=== PATIENT | female | born 1975 | race Caucasian/White ===

== ENCOUNTER → 2017-05-05 | Outpatient (CLI) | payer OTHER ==
--- NOTE | 2017-05-05 09:24 | WOMENS IMAGING REPORT ---
EXAM DESCRIPTION: U/S ABDOMEN LIMITED COMPLETED DATE/TIME: 05/05/2017 8:15 am REASON FOR STUDY: ABNORMAL FINDINGS ON DIAGNOSTIC IMAGING R93.2 ABNORMAL FINDINGS ON DX IMAGING OF LIVER AND BILIARY T R94.5 ABNORMAL RESULTS OF LIVER FUNCTION STUDIES COMPARISON: CT abdomen pelvis with contrast 05/28/2011 Abdominal ultrasound 05/28/2011 TECHNIQUE: Dynamic and static grayscale images acquired of the abdomen and recorded on PACS. Additio nal selected color Doppler and spectral images recorded. LIMITATIONS: None. FINDINGS: PANCREAS: No masses. Visualized pancreatic duct normal caliber. LIVER: No masses. Echotexture normal. LIVER VASCULATURE: Normal directional flow of the main portal vein and hepatic veins. GALLBLADDER: Surgically absent ULTRASOUND-DETECTED HERR'S SIGN: Negative. INTRAHEPATIC DUCTS AND COMMON DUCT: CBD and intrahepatic ducts normal caliber. No filling defects. 3 mm diameter common duct at the deepthi hepatis. Distal most common duct not well seen due to duodenum gas. INFERIOR VENA CAVA: Normal flow. AORTA: No aneurysm. RIGHT KIDNEY: Normal size. Normal echogenicity. No solid or suspicious masses. No hydronephrosis. No calcifications. PERITONEAL AND RIGHT PLEURAL SPACE: No ascites or effusions. OTHER: No other significant findings. IMPRESSION: Post cholecystectomy. No intra or extrahepatic biliary ductal dilatation on today's ultrasound. TECHNICAL DOCUMENTATION: JOB ID: [id number] All Rights Reserved
== END ==
LOC: RAD 07:38
PROVIDERS: ATTEND Internal Medicine Gastroenterology
DX: R93.2 Abnormal findings on diagnostic imaging of liver and biliary tract (principal); R94.5 Abnormal results of liver function studies
CPT/HCPCS: 76705

== ENCOUNTER 2018-02-18 10:15 | Inpatient (IN) | payer OTHER ==
[~2018-02-18 10:15] MED LIST: FUROSEMIDE INJ/PF 20 MG/2 ML SDV IV PRN
[2018-02-18 11:13] LABS: HEMATOCRIT 18.9 % (36.0-47.0); MEAN CORPUSCULAR HGB CONC 30.8 g/dL (32.0-36.0); MEAN CORPUSCULAR VOLUME 75 fl (80-97); PLATELET COUNT 310 10^3/uL (150-450); RED BLOOD COUNT 2.53 10^6/uL (3.72-5.28)
[2018-02-18] MEDS ORDERED: NORMAL SALINE 250 ML IV PRN (11:21)
[2018-02-18] MEDS ORDERED: DEXTROSE 50%-WATER 25 GM/50 ML DISP.SYRIN IV PRN ×2 (12:39)
[2018-02-18] MEDS ORDERED: DEXTROSE 40% GEL 15 GM TUBE PO PRN ×2 (12:39)
[2018-02-18] MEDS ORDERED: GLUCAGON,HUMAN RECOMB 1 MG INJ SUBCUT PRN (12:39)
[2018-02-18] MEDS ORDERED: NORMAL SALINE 1000 ML 1,000 ML IV PRN (12:41)
[2018-02-18 12:58] LABS: ABSOLUTE RETICS # 0.076 10^6/uL (0.028-0.122); RETICULOCYTE COUNT (AUTO) 3.24 % (0.66-2.85)
[2018-02-18 13:17] LABS: ALANINE AMINOTRANSFERASE 30 U/L (9-52); ALBUMIN 3.4 g/dL (3.5-5.0); ALKALINE PHOSPHATASE 77 U/L (38-126); ANION GAP 9 (5-19); ASPARTATE AMINO TRANSFERASE 25 U/L (14-36); BILIRUBIN,DIRECT 0.2 mg/dL (0.0-0.4); BILIRUBIN,TOTAL 0.2 mg/dL (0.2-1.3); BLOOD UREA NITROGEN 13 mg/dL (7-20); CALCIUM 8.5 mg/dL (8.4-10.2); CARBON DIOXIDE 27 mmol/L (22-30); CHLORIDE 105 mmol/L (98-107); GLUCOSE 92 mg/dL (75-110); SODIUM 140.7 mmol/L (137-145); TOTAL PROTEIN 5.7 g/dL (6.3-8.2)
[2018-02-18] MEDS ORDERED: DIPHENHYDRAMINE HCL 25 MG CAPSULE PO ONE (13:30)
[2018-02-18 13:53] LABS: FERRITIN 3.14 ng/mL (6.2-137.0)
[2018-02-18 14:26] LABS: IRON(TIBC) < 10.1 ug/dL (37-170)
--- NOTE | 2018-02-18 17:21 | PDOC H&P ---
History of Present Illness Admission Date/PCP: 02/18/18 10:15 LUCILA TATUM MD Patient complains of: Nausea, Tarry diarrhea History of Present Illness: KANG CHEN is a 42 year old female referred to my service for admission by Dr Duran, glass enamel mixer/oncologist, who has been caring for her anemia. Patient reported that her hemoglobin was 10.4 on 01/18/2018 and dropped to 5.8 today at [facility]. She reported nausea, early satiety, intermittent diarrhea and formed stool that she described as tarry in character. No definite abdominal pain or overt vomiting. There is associated dizziness. No loss of consciousness, headache, fever or chills. In view of her symptoms and low hemoglobin she was advised hospitalization for further evaluation and management. Past Medical History Cardiac Medical History: Reports: Hypertension Neurological Medical History: Reports: Migraine GI Medical History: Reports: Peptic Ulcer Disease, Other - Gastric bypass Psychiatric Medical History: Reports: Depression Hematology: Reports: Anemia Past Surgical History Past Surgical History: Reports: Gastric Bypass Surgery Social History Information Source: Patient, Dr. Office, Outside Facility Records Smoking Status: Never Smoker Frequency of Alcohol Use: None Hx Recreational Drug Use: No - Advance Directive Resuscitation Status: Full Code Family History Parental Family History Reviewed: Yes Children Family History Reviewed: Yes Sibling(s) Family History Reviewed.: Yes Medication/Allergy Home Medications: No Home Medications 11/26/16 Allergies/Adverse Reactions: No Known Allergies Allergy (Unverified 04/01/11 10:45) Review of Systems Constitutional: ABSENT: chills, fever(s), headache(s), weight gain, weight loss Eyes: ABSENT: visual disturbances Ears: ABSENT: hearing changes Nose, Mouth, and Throat: ABSENT: as per HPI, headache(s), mouth pain, sore throat, vertigo, other Cardiovascular: ABSENT: chest pain, dyspnea on exertion, edema, orthropnea, palpitations Respiratory: ABSENT: cough, hemoptysis Gastrointestinal: PRESENT: diarrhea, hematochezia - tarry stool, nausea, vomiting Genitourinary: ABSENT: dysuria, hematuria Musculoskeletal: ABSENT: joint swelling Integumentary: ABSENT: rash, wounds Neurological: ABSENT: abnormal gait, abnormal speech, confusion, dizziness, focal weakness, syncope Psychiatric: PRESENT: anxiety, depression Endocrine: ABSENT: cold intolerance, heat intolerance, menstrual abnormalities, polydipsia, polyuria Hematologic/Lymphatic: ABSENT: easy bleeding, easy bruising, lymphadenopathy Allergic/Immunologic: ABSENT: seasonal rhinorrhea Physical Exam Vital Signs: Temp Pulse Resp BP Pulse Ox 98.5 F 105 H 18 148/89 H 99 02/18/18 10:52 02/18/18 10:52 02/18/18 10:52 02/18/18 10:52 02/18/18 10:52 Intake & Output 02/17/18 02/18/18 02/19/18 06:59 06:59 06:59 Weight 127.91 kg General appearance: PRESENT: morbidly obese Head exam: PRESENT: atraumatic, normocephalic Eye exam: PRESENT: conjunctiva pale, EOMI, PERRLA. ABSENT: scleral icterus Ear exam: PRESENT: normal external ear exam Mouth exam: PRESENT: moist, tongue midline Throat exam: ABSENT: post pharyngeal erythema, tonsillar erythema, tonsillar exudate, tonsillogmegaly, other Neck exam: PRESENT: full ROM. ABSENT: carotid bruit, JVD, lymphadenopathy, thyromegaly Respiratory exam: PRESENT: clear to auscultation niurka Cardiovascular exam: PRESENT: RRR. ABSENT: diastolic murmur, rubs, systolic murmur Pulses: PRESENT: normal dorsalis pedis pul, +2 pedal pulses bilateral Vascular exam: PRESENT: normal capillary refill, pallor GI/Abdominal exam: PRESENT: normal bowel sounds, soft. ABSENT: distended, guarding, mass, organolmegaly, rebound, tenderness Rectal exam: PRESENT: deferred Extremities exam: ABSENT: pedal edema Musculoskeletal exam: PRESENT: normal inspection Neurological exam: PRESENT: alert, awake, oriented to person, oriented to place , oriented to time, oriented to situation, CN II-XII grossly intact. ABSENT: motor sensory deficit Psychiatric exam: PRESENT: appropriate affect, normal mood. ABSENT: homicidal ideation, suicidal ideation Results Laboratory Results: I reviewed her lab results on '[employer] and form significant part of my medical decision making. 02/18/18 10:43 02/18/18 02/18/18 10:43 10:43 WBC 4.0 RBC 2.53 L Hgb 5.8 L Hct 18.9 L MCV 75 L MCH 23.0 L MCHC 30.8 L RDW 18.0 H Plt Count 310 Blood Type A POSITIVE Antibody Screen NEGATIVE Assessment & Plan - Diagnosis (1) Severe anemia Is this a current diagnosis for this admission?: Yes Plan: See admitting attending physician orders. (2) Iron deficiency anemia Qualifiers: Iron deficiency anemia type: chronic blood loss Qualified Code(s): D50.0 - Iron deficiency anemia secondary to blood loss (chronic) Is this a current diagnosis for this admission?: Yes Plan: See admitting attending physician orders. (3) Personal history of peptic ulcer disease Is this a current diagnosis for this admission?: Yes Plan: See admitting attending physician orders. (4) History of gastric bypass Is this a current diagnosis for this admission?: Yes Plan: See admitting attending physician orders. (5) Hypertension Qualifiers: Hypertension type: essential hypertension Qualified Code(s): I10 - Essential (primary) hypertension Is this a current diagnosis for this admission?: Yes Plan: See admitting attending physician orders. (6) Mixed anxiety and depressive disorder Is this a current diagnosis for this admission?: Yes Plan: See admitting attending physician orders. (7) Migraine headache Qualifiers: Migraine type: unspecified Intractability: not intractable Is this a current diagnosis for this admission?: Yes Plan: See admitting attending physician orders. (8) Morbid obesity with body mass index (BMI) of 45.0 to 49.9 in adult Is this a current diagnosis for this admission?: Yes Plan: See admitting attending physician orders. - Time Time Spent: 50 to 70 Minutes Medications reviewed and adjusted accordingly: Yes Anticipated discharge: Home Within: Other - Inpatient Certification Based on my medical assessment, after consideration of the patient's comorbidities, presenting symptoms, or acuity I expect that the services needed warrant INPATIENT care.: Yes I certify that my determination is in accordance with my understanding of Medicare's requirements for reasonable and necessary INPATIENT services [42 CFR 412.3e].: Yes Medical Necessity: Need Close Monitoring Due to Risk of Patient Decompensation, Need For IV Fluids, Risk of Complication if Not Cared For in Hospital Post Hospital Care: D/C Special Needs Caregiver Documentation - Plan Summary Plan Summary: See admitting attending physician orders.
[2018-02-18] MEDS: LANSOPRAZOLE 30 MG TAB.RAP.DR PO SCH (17:37)
[2018-02-18] MEDS ORDERED: ONDANSETRON HCL INJ/PF 4 MG/2 ML SDV ONE (19:45)
[2018-02-18] MEDS ORDERED: DIPHENHYDRAMINE HCL 50 MG/ML VIAL ONE (19:45)
[2018-02-18] MEDS ORDERED: NALOXONE HCL INJ/PF 0.4 MG/1 ML SDV ONE (19:45)
[2018-02-18] MEDS ORDERED: FENTANYL CITRATE INJ/PF 100 MCG/2 ML AMPUL ONE (19:46)
[2018-02-18] MEDS ORDERED: EPINEPHRINE INJ 1 MG/10 ML DISP.SYRIN ONE (19:46)
[2018-02-18] MEDS ORDERED: GLUCAGON,HUMAN RECOMB 1 MG INJ ONE (19:46)
[2018-02-18] MEDS ORDERED: MIDAZOLAM 2 MG/2 ML INJ ONE (19:46)
[2018-02-18] MEDS ORDERED: FLUMAZENIL INJ 0.5 MG/5 ML VIAL ONE (19:46)
[2018-02-18] MEDS: MIDAZOLAM 2 MG/2 ML INJ ONE ×2 (19:50→19:55)
--- NOTE | 2018-02-18 20:24 | PDOC CONSULTATION ---
Consultation Consult Date: 02/18/18 History of Present Illness Admission Date/PCP: 02/18/18 10:15 ADRI THOMPSON MD History of Present Illness: KANG CHEN is a 42 year old femalePatient who was admitted with severe anemia with a hemoglobin of 5.8 and microcytosis. Her ferritin was 3 with elevated TIBC on admission on a slightly low vitamin B12 a 178 and a normal folate of 17. She has a chronic history of iron deficiency anemia diagnosed at least since 2013. She was evaluated by EGD, colonoscopy and capsule endoscopy in 2014 with nothing significant identified. I saw her again in April of last year and she had an EGD and colonoscopy in May 2017. This showed no definite etiology for her iron deficiency except for her history of gastric bypass. Her hemoglobin was 10.4 in April of last year and according to the patient it was still over 10 in January of this year. She has been feeling sick over the last 3 weeks with increasing tiredness, shortness of breath and eating a lot of ice. She has been receiving iron infusions from Dr. Duran in the last infusion was in November. She denies any bright red blood per rectum but she did have one stool that was black a few days ago. She denies hematemesis or abdominal pain. She is not on oral iron. Past Medical History Cardiac Medical History: Reports: Hypertension Neurological Medical History: Reports: Migraine Denies: Seizures GI Medical History: Reports: Peptic Ulcer Disease, Other - Gastric bypass Psychiatric Medical History: Reports: Depression Hematology: Reports: Anemia Past Surgical History Past Surgical History: Reports: Gastric Bypass Surgery Denies: Hysterectomy Social History Smoking Status: Never Smoker Frequency of Alcohol Use: None Hx Recreational Drug Use: No Hx Prescription Drug Abuse: No - Advance Directive Resuscitation Status: Full Code Family History Parental Family History Reviewed: No Children Family History Reviewed: NA Sibling(s) Family History Reviewed.: NA Medication/Allergy Home Medications: No Home Medications 11/26/16 Allergies/Adverse Reactions: No Known Allergies Allergy (Unverified 04/01/11 10:45) Review of Systems All systems: reviewed and no additional remarkable complaints except as stated Physical Exam Vital Signs: Temp Pulse Resp BP Pulse Ox 98.7 F 89 16 114/59 L 100 02/18/18 19:32 02/18/18 20:15 02/18/18 20:15 02/18/18 20:15 02/18/18 20:15 Intake & Output 02/17/18 02/18/18 02/19/18 06:59 06:59 06:59 Intake Total 600 Balance 600 Weight 127.91 kg Exam: General: Patient is alert and looks well. HEENT: There is no pallor or jaundice. PERRLA. Oropharynx normal. She is obese Respiratory: No chest deformity. No respiratory distress. Chest wall palpitation was unremarkable. Breath sounds were normal Cardiovascular: Heart sounds 1 and 2 normal with no murmurs. Abdominal: Not distended. Soft and nontender. Liver and spleen not palpable. No ascites demonstrated. Bowel sounds active. Rectal examination was deferred. Extremities: No edema Neurological: Alert and oriented x4. Grossly nonfocal. Normal speech Skin: No significant rash Psychological: Normal affect Results Laboratory Results: 02/18/18 10:43 02/18/18 12:08 02/18/18 02/18/18 02/18/18 10:43 10:43 12:08 WBC 4.0 RBC 2.53 L Hgb 5.8 L Hct 18.9 L MCV 75 L MCH 23.0 L MCHC 30.8 L RDW 18.0 H Plt Count 310 Retic Count (auto) 3.24 H Absolute Retic 0.076 Sodium Potassium Chloride Carbon Dioxide Anion Gap BUN Creatinine Est GFR ( Amer) Est GFR (Non-Af Amer) Glucose Calcium Iron TIBC % Saturation Ferritin Total Bilirubin AST ALT Alkaline Phosphatase Total Protein Albumin Vitamin B12 Folate Blood Type A POSITIVE Antibody Screen NEGATIVE 02/18/18 12:08 WBC RBC Hgb Hct MCV MCH MCHC RDW Plt Count Retic Count (auto) Absolute Retic Sodium 140.7 Potassium 4.0 Chloride 105 Carbon Dioxide 27 Anion Gap 9 BUN 13 Creatinine 0.60 Est GFR ( Amer) > 60 Est GFR (Non-Af Amer) > 60 Glucose 92 Calcium 8.5 Iron < 10.1 L TIBC 469 H % Saturation UNABLE TO CALCULATE Ferritin 3.14 L Total Bilirubin 0.2 AST 25 ALT 30 Alkaline Phosphatase 77 Total Protein 5.7 L Albumin 3.4 L Vitamin B12 178.0 L Folate 17.40 Blood Type Antibody Screen Assessment & Plan - Diagnosis (1) Iron deficiency anemia Qualifiers: Iron deficiency anemia type: chronic blood loss Qualified Code(s): D50.0 - Iron deficiency anemia secondary to blood loss (chronic) Is this a current diagnosis for this admission?: Yes Plan: She has chronic iron deficiency anemia with worsening of her hemoglobin on this admission. She only had one episode of black stool and no other symptoms to suggest acute GI bleeding. After her endoscopic evaluation last year I felt her anemia was related to iron malabsorption from her history of gastric bypass. The significant drop in her hemoglobin over the last 4-6 weeks warrant a second look endoscopy. This time I will also perform a capsule endoscopy. She has received 2 units of blood in the hospital and will need to resume her iron infusions. She will undergo an EGD, enteroscopy and a colonoscopy. (2) History of gastric bypass Is this a current diagnosis for this admission?: Yes (3) Morbid obesity with body mass index (BMI) of 45.0 to 49.9 in adult Is this a current diagnosis for this admission?: Yes (4) Severe anemia Is this a current diagnosis for this admission?: Yes
--- NOTE | 2018-02-18 20:26 | Operative Report ---
Operative Report DATE OF SURGERY: 02/18/18 Operative Report: Pre-op diagnosis: Severe iron deficiency anemia Post-op diagnosis: 1. Normal gastric remnants, esophagus, and proximal jejunum 2. Limited view of the colon but no evidence for recent bleeding Surgery: Upper endoscopy and Colonoscopy to transverse colon Medications: Versed 4 mg, Fentanyl 100 mcg IV push Tissue removed: None Procedure: After informed consent obtained from patient, patient's pharynx was sprayed with Hurricane and conscious sedation was achieved. The upper endoscope was then inserted into the esophagus under direct vision and advanced into the stomach and further into the duodenum. Detailed examination of the duodenum, stomach and the esophagus was then performed. A digital rectal examination was performed and this was unremarkable. The colonoscope was inserted into the rectum and advanced to the cecum. The appendiceal orifice and the terminal ileum were both identified. The mucosa was examined into details as the colonoscope was slowly pulled out of the patient. The endoscope was retroflexed in the rectum. Patient tolerated the procedure well. Findings Esophagus: Normal Gastric remnants: Normal Transverse colon: Limited view due to dark brown stool Descending colon: Limited view Sigmoid colon: Limited view Rectum: Normal except for internal hemorrhoids Plan: We will repeat colonoscopy as outpatient and also perform capsule endoscopy. Patient can be discharged from GI standpoint OPERATION: .
[2018-02-19 03:47] LABS: HEMATOCRIT 24.3 % (36.0-47.0); MEAN CORPUSCULAR HEMOGLOBIN 25.5 pg (27.0-33.4); MEAN CORPUSCULAR HGB CONC 32.6 g/dL (32.0-36.0); MEAN CORPUSCULAR VOLUME 78 fl (80-97); PLATELET COUNT 237 10^3/uL (150-450); RED BLOOD COUNT 3.11 10^6/uL (3.72-5.28); RED CELL DISTRIBUTION WIDTH 17.9 % (11.5-14.0); WHITE BLOOD COUNT 4.1 10^3/uL (4.0-10.5)
[2018-02-19 03:50] LABS: HEMOGLOBIN 7.9 g/dL (12.0-15.5)
[2018-02-19] MEDS: LANSOPRAZOLE 30 MG TAB.RAP.DR PO SCH (06:45)
[2018-02-19 08:23] LABS: HEMOGLOBIN 5.8 g/dL (12.0-15.5)
--- NOTE | 2018-02-19 08:37 | PDOC DISCHARGE SUMMARY ---
General - Admit/Disc Date/PCP Admission Date/Primary Care Provider: 02/18/18 10:15 LUCILA TATUM MD Discharge Date: 02/19/18 - Discharge Diagnosis (1) Severe anemia Is this a current diagnosis for this admission?: Yes Summary: Improved hemoglobin status. (2) Iron deficiency anemia Is this a current diagnosis for this admission?: Yes Summary: Improved hemoglobin status. (3) Personal history of peptic ulcer disease Is this a current diagnosis for this admission?: Yes Summary: Continue on Prevacid 30 mg po bid coverage x 14 days and thereafter decrease to daily. (4) History of gastric bypass Is this a current diagnosis for this admission?: Yes Summary: Follow up with scientific laboratory supervisor as instructed upon discharge. (5) Hypertension Is this a current diagnosis for this admission?: Yes Summary: Emphasized dietary and lifestyle adjustment. Follow up with her PCP for further evaluation and management. (6) Mixed anxiety and depressive disorder Is this a current diagnosis for this admission?: Yes Summary: Follow up with her PCP for further evaluation and management. (7) Migraine headache Is this a current diagnosis for this admission?: Yes Summary: Follow up with her PCP for further evaluation and management. (8) Morbid obesity with body mass index (BMI) of 45.0 to 49.9 in adult Is this a current diagnosis for this admission?: Yes Summary: Emphasized dietary and lifestyle adjustment. Follow up with her PCP for further evaluation and management. - Additional Information Resuscitation Status: Full Code Prescriptions: Lansoprazole 30 mg PO BID #60 capsule. [place] Medications: Lansoprazole 30 mg PO BID #60 capsule. 02/19/18 History of Present Illness History of Present Illness: KANG CHEN is a 42 year old female referred to my service for admission by Dr Duran, chiropractic physician/oncologist, who has been caring for her anemia. Patient reported that her hemoglobin was 10.4 on 01/18/2018 and dropped to 5.8 today at [facility]. She reported nausea, early satiety, intermittent diarrhea and formed stool that she described as tarry in character. No definite abdominal pain or overt vomiting. There is associated dizziness. No loss of consciousness, headache, fever or chills. In view of her symptoms and low hemoglobin she was advised hospitalization for further evaluation and management. Hospital Course Hospital Course: Patient was transfused total 4 units of PRBC due to symptomatic anemia from chronc bleeding. Hse is s/p gastric by pass with iron deficiency anemia. She has been on iron infusion therapy for her anemia management. She has precipitous decline in her hemoglobin from 10.4 on 01/18/2018 to 5.8 on necessitating hospitalization and endoscopic evaluation for possible identifiable bleeding site. Her endoscopic and colonoscopy evaluation were unrevealing. Her post transfusion hemoglobin is in satisfactory status to safely discharge home today. She will follow up with her chiropractic physician, Dr. Duran as instructed upon discharge. Physical Exam Vital Signs: Temp Pulse Resp BP Pulse Ox 98.3 F 71 16 130/69 H 98 02/19/18 07:52 02/19/18 07:52 02/19/18 07:52 02/19/18 07:52 02/19/18 07:52 Intake & Output 02/18/18 02/19/18 02/20/18 06:59 06:59 06:59 Intake Total 1450 Balance 1450 Weight 115.1 kg General appearance: PRESENT: no acute distress, morbidly obese Head exam: PRESENT: atraumatic, normocephalic Eye exam: PRESENT: conjunctiva pink Ear exam: PRESENT: normal external ear exam Mouth exam: PRESENT: moist Respiratory exam: PRESENT: clear to auscultation niurka Cardiovascular exam: PRESENT: RRR. ABSENT: diastolic murmur, rubs, systolic murmur Vascular exam: PRESENT: normal capillary refill. ABSENT: pallor GI/Abdominal exam: PRESENT: normal bowel sounds, soft. ABSENT: distended, guarding, mass, organolmegaly, rebound, tenderness Extremities exam: ABSENT: pedal edema Musculoskeletal exam: PRESENT: normal inspection Neurological exam: PRESENT: alert, awake, oriented to person, oriented to place , oriented to time, oriented to situation, CN II-XII grossly intact. ABSENT: motor sensory deficit Psychiatric exam: PRESENT: appropriate affect, normal mood. ABSENT: homicidal ideation, suicidal ideation Skin exam: PRESENT: dry, intact, warm. ABSENT: cyanosis, rash Results Laboratory Results: 02/19/18 03:37 02/18/18 12:08 02/18/18 02/18/18 02/18/18 10:43 10:43 12:08 WBC 4.0 RBC 2.53 L Hgb 5.8 L Hct 18.9 L MCV 75 L MCH 23.0 L MCHC 30.8 L RDW 18.0 H Plt Count 310 Retic Count (auto) 3.24 H Absolute Retic 0.076 Sodium Potassium Chloride Carbon Dioxide Anion Gap BUN Creatinine Est GFR ( Amer) Est GFR (Non-Af Amer) Glucose Calcium Iron TIBC % Saturation Ferritin Total Bilirubin AST ALT Alkaline Phosphatase Total Protein Albumin Vitamin B12 Folate Blood Type A POSITIVE Antibody Screen NEGATIVE 02/18/18 02/19/18 12:08 03:37 WBC 4.1 RBC 3.11 L Hgb 7.9 L D Hct 24.3 L MCV 78 L MCH 25.5 L MCHC 32.6 RDW 17.9 H Plt Count 237 Retic Count (auto) Absolute Retic Sodium 140.7 Potassium 4.0 Chloride 105 Carbon Dioxide 27 Anion Gap 9 BUN 13 Creatinine 0.60 Est GFR ( Amer) > 60 Est GFR (Non-Af Amer) > 60 Glucose 92 Calcium 8.5 Iron < 10.1 L TIBC 469 H % Saturation UNABLE TO CALCULATE Ferritin 3.14 L Total Bilirubin 0.2 AST 25 ALT 30 Alkaline Phosphatase 77 Total Protein 5.7 L Albumin 3.4 L Vitamin B12 178.0 L Folate 17.40 Blood Type Antibody Screen Qualifiers - * PATIENT BEING DISCHARGED WITH ANY OF THE FOLLOWING DIAGNOSIS: No Plan Discharge Plan: Discharge home today. Follow up with Dr Duran and Dr Harris as instructed upon discharge. Follow up with her PCP as scheduled.
[2018-02-19 12:01] LABS: ABSOLUTE EOSINOPHILS # (AUTO) 0.1 10^3/uL (0.0-0.6); ABSOLUTE LYMPHOCYTES (AUTO) 1.5 10^3/uL (0.5-4.7); ABSOLUTE MONOCYTES (AUTO) 0.4 10^3/uL (0.1-1.4); ABSOLUTE NEUT (AUTO) 2.8 10^3/uL (1.7-8.2); BASOPHILS % (AUTO) 0.7 % (0-2); EOSINOPHILS % (AUTO) 1.2 % (0-6); HEMATOCRIT 27.8 % (36.0-47.0); HEMOGLOBIN 9.1 g/dL (12.0-15.5); LYMPHOCYTES % (AUTO) 30.6 % (13-45); MEAN CORPUSCULAR HEMOGLOBIN 25.8 pg (27.0-33.4); MEAN CORPUSCULAR HGB CONC 32.6 g/dL (32.0-36.0); MEAN CORPUSCULAR VOLUME 79 fl (80-97); MONOCYTES % (AUTO) 8.2 % (3-13); PLATELET COUNT 258 10^3/uL (150-450); RED BLOOD COUNT 3.51 10^6/uL (3.72-5.28); RED CELL DISTRIBUTION WIDTH 17.9 % (11.5-14.0); SEGMENTED NEUTROPHILS % (AUTO) 59.3 % (42-78); TOTAL CELLS COUNTED % (AUTO) 100 %; WHITE BLOOD COUNT 4.7 10^3/uL (4.0-10.5)
[2018-02-19 13:09] VITALS: BP 135/74
== END 2018-02-19 13:25 | disposition home or self-care (01) | DRG 812 ==
LOC: 2N 10:15
PROVIDERS: ADMIT Internal Medicine Geriatric Medicine; ATTEND Internal Medicine Geriatric Medicine
PROC: 30233N1 Transfusion of Nonautologous Red Blood Cells into Peripheral Vein, Percutaneous Approach (ICD-10-PCS; 2018-02-18)
PROC: 30233N1 Transfusion of Nonautologous Red Blood Cells into Peripheral Vein, Percutaneous Approach (ICD-10-PCS; 2018-02-18)
PROC: 0DJ08ZZ Inspection of Upper Intestinal Tract, Via Natural or Artificial Opening Endoscopic (ICD-10-PCS; 2018-02-18)
PROC: 0DJD8ZZ Inspection of Lower Intestinal Tract, Via Natural or Artificial Opening Endoscopic (ICD-10-PCS; 2018-02-18)
PROC: 30233N1 Transfusion of Nonautologous Red Blood Cells into Peripheral Vein, Percutaneous Approach (ICD-10-PCS; principal; 2018-02-18 19:00)
PROC: 30233N1 Transfusion of Nonautologous Red Blood Cells into Peripheral Vein, Percutaneous Approach (ICD-10-PCS; 2018-02-18 19:00)
DX: D50.0 Iron deficiency anemia secondary to blood loss (chronic) (principal); Z68.41 Body mass index [BMI] 40.0-44.9, adult; I10 Essential (primary) hypertension; E66.01 Morbid (severe) obesity due to excess calories; F41.8 Other specified anxiety disorders; G43.909 Migraine, unspecified, not intractable, without status migrainosus; Z98.84 Bariatric surgery status
CPT/HCPCS: 36415; 36430; 43235; 45378; 80053; 82272; 82607; 82728; 82746; 83540; 83550; 85025; 85027; 85045; 86850; 86900; 86901; 86920; J0171; J1200; J1610; J1940; J2250; J2310; J2405; J3010; J3490; J7050; P9016

== ENCOUNTER → 2018-09-01 | Outpatient (CLI) | payer OTHER ==
--- NOTE | 2018-09-01 09:14 | RADIOLOGY REPORT (SQ) ---
EXAM DESCRIPTION: CT ABDOMEN IV CONTRAST ONLY COMPLETED DATE/TIME: 09/01/2018 8:05 am REASON FOR STUDY: ABD PAIN R10.9 UNSPECIFIED ABDOMINAL PAIN COMPARISON: 05/28/2011 TECHNIQUE: CT scan of the abdomen performed with intravenous and without oral contrast using helical scanning technique with dynamic intravenous contrast injection. Images reviewed with lung, soft tiss ue, and bone windows. Reconstructed coronal and sagittal MPR images reviewed. Delayed images for eval uation of the urinary system also acquired and evaluated. All images stored on PACS. All CT scanners at this facility use dose modulation, iterative reconstruc tion, and/or weight based dosing when appropriate to reduce radiation dose to as low as reasonably ac hievable (ALARA). [facility]: Dose Right [facility]: CareDose [facility]: Dose Right [facility]: Teradose 4D [facility]: Xirrus CONTRAST TYPE AND DOSE: contrast/concentration: Isovue 350.00 mg/ml; Total Contrast Delivered: 100.0 ml; Total Saline Delivered: 72.0 ml RENAL FUNCTION: None required. The patient is less than 50 years old. RADIATION DOSE: CT Rad equipment meets quality standard of care and radiation dose reduction techniq ues were employed. CTDIvol: 19.0 - 20.2 mGy. DLP: 1506 mGy-cm. . LIMITATIONS: None. FINDINGS: LOWER CHEST: No significant findings. No nodules or infiltrates. LIVER: Liver is normal size. No focal masses. Ductal dilatation previously described has resolved. SPLEEN: Normal size. No focal lesions. PANCREAS: No masses. No significant calcifications. No adjacent inflammation or peripancreatic fluid collections. Pancreatic duct not dilated. GALLBLADDER: Surgically absent. ADRENAL GLANDS: No significant masses or asymmetry. RIGHT KIDNEY AND URETER: No solid masses. No significant calcifications. No hydronephrosis or hyd roureter. LEFT KIDNEY AND URETER: No solid masses. No significant calcifications. No hydronephrosis or hydr oureter. AORTA AND VESSELS: No aneurysm. No dissection. Renal arteries, SMA, celiac without stenosis. RETROPERITONEUM: No retroperitoneal adenopathy, hemorrhage or masses. BOWEL AND PERITONEAL CAVITY: There are postsurgical changes with surgical clips at the stomach and in the right mid abdomen. No obstruction. No focal inflammatory changes. APPENDIX: Not visualized. ABDOMINAL WALL: No masses. No hernias. BONES: No significant or acute findings. OTHER: No other significant finding. IMPRESSION: No acute findings in the abdomen. TECHNICAL DOCUMENTATION: JOB ID: [id number] Quality ID # [id number]: Final reports with documentation of one or more dose reduction techniques (e.g., Au tomated exposure control, adjustment of the mA and/or kV according to patient size, use of iterative reconstruction technique) 2010 [employer]- All Rights Reserved Reading location - IP/workstation name: [email or web address]
== END ==
LOC: RAD 07:33
PROVIDERS: ATTEND Internal Medicine Medical Oncology
DX: R10.9 Unspecified abdominal pain (principal)
CPT/HCPCS: 74160

== ENCOUNTER → 2018-10-14 | Outpatient (CLI) | payer OTHER ==
--- NOTE | 2018-10-14 12:15 | RADIOLOGY REPORT (SQ) ---
EXAM DESCRIPTION: MRI ABDOMEN WITHOUT COMPLETED DATE/TIME: 10/14/2018 9:30 am REASON FOR STUDY: R94.5 ABNORMAL RESULTS OF LIVER FUNCTION STUDIES R94.5 ABNORMAL RESULTS OF LIVER FUNCTION STUDIES K87 DISORD OF GB, BILIARY TRAC AND PANCREAS IN DIS CLASSD EL COMPARISON: CT abdomen pelvis 09/01/2018 Right upper quadrant ultrasound 05/05/2017 CT abdomen pelvis 05/28/2011 TECHNIQUE: Noncontrast MRCP. Source and MIP images reviewed. LIMITATIONS: None. FINDINGS: GALLBLADDER: Surgically absent INTRAHEPATIC DUCTS: Nondilated. EXTRAHEPATIC DUCTS: Common duct is normal caliber, 6 mm in diameter at the pancreatic head (was 14 mm in diameter on CT 05/28/2011). No common bile duct filling defects. No dilatation of the pancreatic duct. No pancreatic duct filling defects. PANCREAS: Generally homogeneous, no gross mass or significant signal alteration. No surrounding infl ammatory changes or fluid. Pancreatic duct is normal. LIVER, SPLEEN, KIDNEYS, ADRENALS: No significant abnormality. VESSELS: No evidence of aneurysm. Grossly appropriate flow voids in the major vascular structures. LUNG BASES: Grossly clear. OTHER: No other significant finding. IMPRESSION: POST CHOLECYSTECTOMY. OTHERWISE, NORMAL HEPATOBILIARY SYSTEM. NO STONES OR COMMON DUCT ABNORMALITIES. TECHNICAL DOCUMENTATION: JOB ID: [id number] [employer]- All Rights Reserved Reading location - IP/workstation name: [email or web address]
== END ==
LOC: RAD 08:56
PROVIDERS: ATTEND Internal Medicine Gastroenterology
DX: R94.5 Abnormal results of liver function studies (principal)
CPT/HCPCS: 74181

== ENCOUNTER 2019-02-11 18:42 | Emergency (ER) | payer OTHER ==
[2019-02-11] MEDS ORDERED: RINGERS SOLUTION,LACTATED 1,000 ML IV ONE (20:33)
[2019-02-11] MEDS ORDERED: ONDANSETRON HCL INJ/PF 4 MG/2 ML SDV IV ONE (20:55)
--- NOTE | 2019-02-11 21:01 | ER Document Report ---
ED General - General Chief Complaint: Bloody Stools Stated Complaint: WEAKNESS Time Seen by Provider: 02/11/19 20:35 Primary Care Provider: SHANNON DAVID MD [Primary Care Provider] - 02/15/19 ADRI THOMPSON MD [ACTIVE STAFF] - Follow up in 3-5 days Mode of Arrival: Ambulatory Information source: Patient Notes: 43-year-old female with chronic anemia, hypertension, migraine headaches, history of gastric bypass presents with complaint of bloody stools, dizziness, shortness of breath, fatigue. Patient states that she developed black stools yesterday and noticed that the stools were bloody yesterday afternoon and this morning. Patient states that this is a chronic problem and she has undergone multiple endoscopies, colonoscopies, small bowel camera test all which have not shown the source of bleeding. She states the last endoscopy, colonoscopy were in October of this year. Patient intermittently requires iron transfusions, blood transfusions with her last transfusion in October 2018. Patient states that she also has left lower quadrant abdominal pain that she describes as cramping, intermittent. States that Dr. David plans on sending her to [place] in June. TRAVEL OUTSIDE OF THE [place] IN LAST 30 DAYS: No - HPI Onset: Other Onset/Duration: Intermittent Quality of pain: Cramping Severity: Mild Associated symptoms: Nausea, Shortness of breath, Other - Dizzy, abdominal pain. denies: Body/muscle aches, Chest pain, Diarrhea, Fever, Vomiting Exacerbated by: Denies Relieved by: Denies Similar symptoms previously: Yes Recently seen / treated by doctor: Yes - Related Data Allergies/Adverse Reactions: No Known Allergies Allergy (Verified 02/11/19 18:48) Past Medical History - General Information source: Patient - Social History Smoking Status: Never Smoker Frequency of alcohol use: None Drug Abuse: None Lives with: Spouse/Significant other Family History: Reviewed & Not Pertinent Patient has suicidal ideation: No Patient has homicidal ideation: No - Past Medical History Cardiac Medical History: Reports: Hx Hypertension Neurological Medical History: Reports: Hx Migraine. Denies: Hx Seizures GI Medical History: Reports: Hx Ulcer Psychiatric Medical History: Reports: Hx Depression Past Surgical History: Reports: Hx Gastric Bypass Surgery. Denies: Hx Hysterectomy - Immunizations Hx Diphtheria, Pertussis, Tetanus Vaccination: No Review of Systems - Review of Systems Notes: REVIEW OF SYSTEMS: CONSTITUTIONAL : Denies fever, chills, or sweats. Denies recent illness. Denies weight loss, recent hospitalizations. EENT: Denies visual changes, eye pain. Denies sore throat, oral lesions, difficulty swallowing. CARDIOVASCULAR: Denies chest pain. Denies palpitations. Denies lower extremity edema. RESPIRATORY: Denies cough. + shortness of breath, denies wheezing. GASTROINTESTINAL: Denies abdominal distention. Denies vomiting, or diarrhea. Denies blood in vomitus, Denies constipation. GENITOURINARY: Denies difficulty urinating, painful urination, frequency, blood in urine, or vaginal discharge. MUSCULOSKELETAL: Denies back or neck pain or stiffness. Denies joint pain or swelling. SKIN: Denies rash, lesions or sores. HEMATOLOGIC : Denies easy bruising or bleeding. LYMPHATIC: Denies swollen glands. NEUROLOGICAL: Denies confusion or altered mental status. Denies loss of consciousness. + dizziness or lightheadedness. Denies headache. Denies weakness or paralysis. Denies problems difficulty with ambulation, slurred speech. Denies sensory loss, numbness, or tingling. Denies seizures. PSYCHIATRIC: Denies anxiety or stress. Denies depression, suicidal ideation, or homicidal ideation. Denies visual or auditory hallucinations. Physical Exam - Vital signs Vitals: Temp Pulse Resp BP Pulse Ox 98.3 F 106 H 20 177/89 H 97 02/11/19 18:59 02/11/19 18:59 02/11/19 18:59 02/11/19 18:59 02/11/19 18:59 - Notes Notes: PHYSICAL EXAMINATION: GENERAL: Well-appearing, well-nourished and in no acute distress. HEAD: Atraumatic, normocephalic. EYES: Pupils equal round and reactive to light, extraocular movements intact, conjunctiva are normal. ENT: Nares patent, oropharynx clear without exudates. Moist mucous membranes. NECK: Normal range of motion, supple without lymphadenopathy LUNGS: Breath sounds clear to auscultation bilaterally and equal. No wheezes rales or rhonchi. HEART: Regular rate and rhythm without murmurs ABDOMEN: Soft, nontender, nondistended abdomen. No guarding, no rebound. No masses appreciated. Female : Rectal exam shows black stools which are Hemoccult positive. No active bleeding, no external hemorrhoids. Musculoskeletal: Normal range of motion, no pitting or edema. No cyanosis. NEUROLOGICAL: Cranial nerves grossly intact. Normal speech, normal gait. Normal sensory, motor exams PSYCH: Normal mood, normal affect. SKIN: Warm, Dry, normal turgor, no rashes or lesions noted. Course - Re-evaluation Re-evalutation: Temp Pulse Resp BP Pulse Ox 98.3 F 106 H 20 177/89 H 97 02/11/19 18:59 02/11/19 18:59 02/11/19 18:59 02/11/19 18:59 02/11/19 18:59 Laboratory 02/11/19 02/11/19 02/11/19 20:48 20:48 20:48 WBC 4.8 RBC 2.68 L Hgb 7.2 L Hct 22.9 L MCV 85 MCH 27.0 MCHC 31.6 L RDW 18.0 H Plt Count 264 Seg Neutrophils % 54.0 Lymphocytes % 35.5 Monocytes % 7.9 Eosinophils % 1.8 Basophils % 0.8 Absolute Neutrophils 2.6 Absolute Lymphocytes 1.7 Absolute Monocytes 0.4 Absolute Eosinophils 0.1 Absolute Basophils 0.0 Sodium 138.2 Potassium 3.8 Chloride 104 Carbon Dioxide 29 Anion Gap 5 BUN 20 Creatinine 0.64 Est GFR ( Amer) > 60 Est GFR (Non-Af Amer) > 60 Glucose 66 L Calcium 8.2 L Total Bilirubin 0.2 Direct Bilirubin 0.2 Neonat Total Bilirubin Not Reportable Neonat Direct Bilirubin Not Reportable Neonat Indirect Bili Not Reportable AST 40 H ALT 23 Alkaline Phosphatase 87 Total Protein 6.3 Albumin 3.6 Urine Color Urine Appearance Urine pH Ur Specific [place] Urine Protein Urine Glucose (UA) Urine Ketones Urine Blood Urine Nitrite Urine Bilirubin Urine Urobilinogen Ur Leukocyte Esterase Urine WBC (Auto) Urine Bacteria (Auto) Squamous Epi Cells Auto Urine Mucus (Auto) Urine Ascorbic Acid POC Stool Occult Blood Blood Type Cancelled Antibody Screen Cancelled Crossmatch 02/11/19 02/11/19 02/11/19 20:53 21:00 21:05 WBC RBC Hgb Hct MCV MCH MCHC RDW Plt Count Seg Neutrophils % Lymphocytes % Monocytes % Eosinophils % Basophils % Absolute Neutrophils Absolute Lymphocytes Absolute Monocytes Absolute Eosinophils Absolute Basophils Sodium Potassium Chloride Carbon Dioxide Anion Gap BUN Creatinine Est GFR ( Amer) Est GFR (Non-Af Amer) Glucose Calcium Total Bilirubin Direct Bilirubin Neonat Total Bilirubin Neonat Direct Bilirubin Neonat Indirect Bili AST ALT Alkaline Phosphatase Total Protein Albumin Urine Color YELLOW Urine Appearance SLIGHTLY-CLOUDY Urine pH 5.0 Ur Specific [place] 1.025 Urine Protein NEGATIVE Urine Glucose (UA) NEGATIVE Urine Ketones NEGATIVE Urine Blood NEGATIVE Urine Nitrite NEGATIVE Urine Bilirubin NEGATIVE Urine Urobilinogen NEGATIVE Ur Leukocyte Esterase NEGATIVE Urine WBC (Auto) 0 Urine Bacteria (Auto) TRACE Squamous Epi Cells Auto 2 Urine Mucus (Auto) RARE Urine Ascorbic Acid NEGATIVE POC Stool Occult Blood POSITIVE Blood Type A POSITIVE Antibody Screen NEGATIVE Crossmatch See Detail Temp Pulse Resp BP Pulse Ox 98.7 F 81 16 116/58 L 98 02/12/19 02:40 02/12/19 02:40 02/12/19 02:42 02/12/19 02:43 02/12/19 02:42 Abdomen/Pelvis CT 02/11/19 20:55 IMPRESSION: 1. No acute inflammatory or obstructive process identified. This exam was performed according to our departmental dose-optimization program, which includes automated exposure control, adjustment of the mA and/or kV according to patient size and/or use of iterative reconstruction technique. 02/11/19 21:00 43-year-old female with chronic anemia, internal bleeding presents with compl aint of left lower quadrant abdominal pain and black and bloody stools. Vital signs reviewed and patient is hypertensive, mildly tachycardic but afebrile and not hypoxic. Patient does not appear toxic or dehydrated. She is in no acute distress. Rectal exam is significant for black stools which are Hemoccult positive. Patient is not actively bleeding. Patient's hemoglobin is 7.2. She did receive 1 unit of PRBCs. 02/12/19 02:15 Discussed transfer with the patient who is currently declining. She states that she has been to [facility], [facility] and has had multiple endoscopies, colonoscopies small bowel follow through. Patient does have an upcoming appointment with Dr. David on February 15. Patient was discharged home with Zofrkathy, vicodin, Protonix. 02/12/19 02:20 Patient was evaluated and treated as appropriate for the patient's presenting symptoms and complaint, with consideration of any critical or life threatening conditions that may be associated with their obtained history and exam as noted above. All results were discussed with patient. Patient provided the opportunity to ask questions, and express concerns. Patient was educated on treatments based on their presumed diagnosis as noted above. At this time we will discharge the patient with return precautions and follow-up recommendations. Verbal discharge instructions given a the bedside. Medication warnings reviewed. Patient is in agreement with this plan and has verbalized understanding of return precautions. After careful consideration I feel that that patient can be safely discharged from the emergency department, they were advised to followup with a primary care physician in 2-3 days. Dictation on this chart was performed using voice recognition software and may result in unintended grammatical, spelling, syntax or errors. 02/13/19 06:21 - Vital Signs Vital signs: Temp Pulse Resp BP Pulse Ox 98.7 F 81 16 116/58 L 98 02/12/19 02:40 02/12/19 02:40 02/12/19 02:42 02/12/19 02:43 02/12/19 02:42 - Laboratory Result Diagrams: 02/11/19 20:48 02/11/19 20:48 Laboratory results interpreted by me: 02/11/19 02/11/19 02/11/19 20:48 20:48 21:00 RBC 2.68 L Hgb 7.2 L Hct 22.9 L MCHC 31.6 L RDW 18.0 H Glucose 66 L Calcium 8.2 L AST 40 H Crossmatch See Detail - Diagnostic Test Radiology reviewed: Image reviewed, Reports reviewed Discharge - Discharge Clinical Impression: Severe anemia, History of gastric bypass GI bleed Qualifiers: GI bleed type/associated pathology: melena Qualified Code(s): K92.1 - Melena Condition: Good Disposition: HOME, SELF-CARE Instructions: Anemia ([facility]), Anemia, Iron Deficiency ([facility]), Rectal Bleeding, Unclear Cause ([facility]), Upper Gastrointestinal Bleeding ([facility]) Prescriptions: Hydrocodone/Acetaminophen [Clarks 5-325 mg Tablet] 1 tab PO Q6H #12 tablet Ondansetron [Zofran Odt 4 mg Tablet] 1 - 2 tab PO Q4H PRN #15 tab.rapdis PRN Reason: For Nausea/Vomiting Pantoprazole Sodium [Protonix] 40 mg PO DAILY #30 tablet.dr Forms: Elevated Blood Pressure Referrals: ADRI THOMPSON MD [ACTIVE STAFF] - Follow up in 3-5 days SHANNON DAVID MD [Primary Care Provider] - 02/15/19
[2019-02-11 21:10] LABS: ABSOLUTE EOSINOPHILS # (AUTO) 0.1 10^3/uL (0.0-0.6); ABSOLUTE LYMPHOCYTES (AUTO) 1.7 10^3/uL (0.5-4.7); ABSOLUTE MONOCYTES (AUTO) 0.4 10^3/uL (0.1-1.4); ABSOLUTE NEUT (AUTO) 2.6 10^3/uL (1.7-8.2); BASOPHILS % (AUTO) 0.8 % (0-2); EOSINOPHILS % (AUTO) 1.8 % (0-6); HEMATOCRIT 22.9 % (36.0-47.0); LYMPHOCYTES % (AUTO) 35.5 % (13-45); MEAN CORPUSCULAR HGB CONC 31.6 g/dL (32.0-36.0); MEAN CORPUSCULAR VOLUME 85 fl (80-97); MONOCYTES % (AUTO) 7.9 % (3-13); PLATELET COUNT 264 10^3/uL (150-450); RED BLOOD COUNT 2.68 10^6/uL (3.72-5.28); TOTAL CELLS COUNTED % (AUTO) 100 %; WHITE BLOOD COUNT 4.8 10^3/uL (4.0-10.5)
[2019-02-11 21:29] LABS: APPEARANCE,URINE SLIGHTLY-CLOUDY; BILIRUBIN,URINE NEGATIVE (NEGATIVE); COLOR,URINE YELLOW; GLUCOSE, URINE NEGATIVE (NEGATIVE); KETONES,URINE NEGATIVE (NEGATIVE); LEUKOCYTE ESTERASE,URINE NEGATIVE (NEGATIVE); NITRITE,URINE NEGATIVE (NEGATIVE); PROTEIN,URINE NEGATIVE (NEGATIVE); URINE SPECIFIC GRAVITY 1.025; UROBILINOGEN,URINE NEGATIVE mg/dL (<2.0)
[2019-02-11 21:30] LABS: ALANINE AMINOTRANSFERASE 23 U/L (9-52); ALBUMIN 3.6 g/dL (3.5-5.0); ALKALINE PHOSPHATASE 87 U/L (38-126); ANION GAP 5 (5-19); ASPARTATE AMINO TRANSFERASE 40 U/L (14-36); BILIRUBIN,DIRECT 0.2 mg/dL (0.0-0.4); BILIRUBIN,TOTAL 0.2 mg/dL (0.2-1.3); BLOOD UREA NITROGEN 20 mg/dL (7-20); CALCIUM 8.2 mg/dL (8.4-10.2); CARBON DIOXIDE 29 mmol/L (22-30); CHLORIDE 104 mmol/L (98-107); POTASSIUM 3.8 mmol/L (3.6-5.0); TOTAL PROTEIN 6.3 g/dL (6.3-8.2)
[2019-02-11 21:31] LABS: HEMOGLOBIN 7.2 g/dL (12.0-15.5)
[2019-02-11 21:35] LABS: GLUCOSE 66 mg/dL (75-110)
[2019-02-11] MEDS ORDERED: ACETAMINOPHEN 325 MG TABLET PO PRN (21:39)
[2019-02-11] MEDS ORDERED: NORMAL SALINE 250 ML IV PRN ×2 (21:39)
[2019-02-11] MEDS ORDERED: DIPHENHYDRAMINE HCL 25 MG CAPSULE PO PRN (21:39)
--- NOTE | 2019-02-11 23:19 | RADIOLOGY REPORT (SQ) ---
EXAM DESCRIPTION: CT ABDOMEN PELVIS WITH IV CONTRAST COMPLETED DATE/TME: 02/11/2019 20:55 CLINICAL HISTORY: LLQ pain COMPARISON: None Available. TECHNIQUE: CT of the abdomen and pelvis performed following IV administration of 100 mL of Omnipaque 350. DLP: 2280.93 mGycm FINDINGS: Lung Bases: The visualized lung bases are clear. Bones: Degenerative change of the spine. Abdomen: Liver: The liver has normal size and density. No intrahepatic mass or biliary dilatation. Gallbladder: Prior cholecystectomy. Spleen, Pancreas, and Adrenal Glands: The spleen, pancreas, and adrenal glands are unremarkable. Kidneys: The kidneys have normal size and contour without evidence of solid mass or hydronephrosis. Vasculature: The aorta and IVC have normal caliber and position. The portal vein is patent. The proximal visceral and renal arteries are patent. Stomach: Postoperative change of the stomach. Other: No free intraperitoneal air. No free fluid or lymphadenopathy. Pelvis: Bladder: Urinary bladder is unremarkable. Bowel: No dilated loops of large or small bowel. Appendix: The appendix is not identified. Pelvis: Postoperative change of the fallopian tubes. Uterus is not enlarged. IMPRESSION: 1. No acute inflammatory or obstructive process identified. This exam was performed according to our departmental dose-optimization program, which includes automated exposure control, adjustment of the mA and/or kV according to patient size and/or use of iterative reconstruction technique.
[2019-02-12] MEDS ORDERED: PANTOPRAZOLE SODIUM 40 MG VIAL IV ONE (02:15)
[2019-02-12] MEDS ORDERED: HYDROCODONE/ACETAMINOPHEN 5-325 MG (6 TAB/ER DISP) PO PRN (02:59)
[2019-02-12 04:04] VITALS: BP 116/58
== END 2019-02-12 03:00 | disposition home or self-care (01) ==
LOC: ER 18:42
DX: D64.9 Anemia, unspecified (principal); K92.1 Melena; R58 Hemorrhage, not elsewhere classified; R10.32 Left lower quadrant pain; I10 Essential (primary) hypertension; R00.0 Tachycardia, unspecified; Z98.84 Bariatric surgery status; Z87.11 Personal history of peptic ulcer disease
CPT/HCPCS: 99285; 96361; 96374; 96375; 86900; 86901; 36415; 36430; 86850; 85025; 80053; 81001; 86920; 74177; P9016; S0164; J2405; J7050; J7120

== ENCOUNTER → 2020-05-25 | Outpatient (CLI) | payer OTHER ==
[2020-05-25 15:24] LABS: IRON 111.1 ug/dL (37-170)
[2020-05-28 13:07] LABS: MITOCHONDRIAL (M2) ANTIBODY <20.0 Units (0.0-20.0)
[2020-05-28 14:48] LABS: ANTINUCLEAR ANTIBODIES Negative (Negative)
[2020-05-28 17:21] LABS: ALPHA-1-ANTITRYPSIN PHENOTYPE MS (.)
== END ==
LOC: OD 13:59
PROVIDERS: ATTEND Internal Medicine Gastroenterology
DX: K92.2 Gastrointestinal hemorrhage, unspecified (principal); R94.5 Abnormal results of liver function studies; Z68.42 Body mass index [BMI] 45.0-49.9, adult
CPT/HCPCS: 36415; 82103; 82104; 82390; 82728; 83540; 86038; 86256

== ENCOUNTER → 2020-05-30 | Outpatient (CLI) | payer OTHER ==
--- NOTE | 2020-05-30 13:14 | RADIOLOGY REPORT (SQ) ---
EXAM DESCRIPTION: U/S ABDOMEN LIMITED W/O DOP IMAGES COMPLETED DATE/TIME: 05/30/2020 10:09 am REASON FOR STUDY: R94.5 ABNORMAL RESULTS OF LIVER FUNCTION STUDIES R94.5 ABNORMAL RESULTS OF LIVER FUNCTION STUDIES COMPARISON: None. TECHNIQUE: Dynamic and static grayscale images acquired of the abdomen and recorded on PACS. Additio nal selected color Doppler and spectral images recorded. LIMITATIONS: None. FINDINGS: PANCREAS: No masses. Visualized pancreatic duct normal caliber. LIVER: Normal size Mild fatty infiltration. No focal masses. LIVER VASCULATURE: Normal directional flow of the main portal vein and hepatic veins. GALLBLADDER: Surgically absent. ULTRASOUND-DETECTED HERR'S SIGN: Not applicable. INTRAHEPATIC DUCTS AND COMMON DUCT: CBD and intrahepatic ducts normal caliber. No filling defects. INFERIOR VENA CAVA: Normal flow. AORTA: No aneurysm. RIGHT KIDNEY: Normal size. Normal echogenicity. No solid or suspicious masses. No hydronephros is. No calcifications. PERITONEAL AND RIGHT PLEURAL SPACE: No ascites or effusions. OTHER: No other significant findings. IMPRESSION: Mild fatty change. No acute findings. TECHNICAL DOCUMENTATION: JOB ID: [id number] [employer]- All Rights Reserved Reading location - IP/workstation name: [email or web address]
--- OUTSIDE RECORDS SUMMARY | 2020-05-31 18:24 | XMS REPORT ---
:1975 Author Organization [facility] Address [facility] [address] [place] [address] Care Team Providers Name Role Phone NONE Primary Care Physician Unavailable Daniel Vaca Attending Clinician Unavailable STEPHAN SALAS Attending Clinician Unavailable Allergies, Adverse Reactions, Alerts This patient has no known allergies or adverse reactions. Medications Ordered Filled Start Stop Current Ordering Indication Dosage Frequency Signature Comments Components Medication Medication Date Date Medication? Clinician (SIG) Name Name Cyanocobala 2020-1 No 1000 Cyanocobal min 0-19 greene 00:00: 00 Feraheme 2020-1 No 510mg Feraheme 0-12 00:00: 00 Sodium 2020-1 No 50mL Sodium Chloride 0-12 Chloride 00:00: 00 Feraheme 2020-1 No 510mg Feraheme 0-05 00:00: 00 Sodium 2020-1 No 100mL Sodium Chloride 0-05 Chloride 00:00: 00 Cyanocobala 2020-0 No 1000 Cyanocobal min 8-24 greene 00:00: 00 Cyanocobala 2020-0 No 1000 Cyanocobal min 7-27 greene 00:00: 00 Cyanocobala 2020-0 No 1000 Cyanocobal min 6-29 greene 00:00: 00 Feraheme 2020-0 No 510mg Feraheme 6-15 00:00: 00 Sodium 2020-0 No 50mL Sodium Chloride 6-15 Chloride 00:00: 00 Feraheme 2020-0 No 510mg Feraheme 6-08 00:00: 00 Sodium 2020-0 No 100mL Sodium Chloride 6-08 Chloride 00:00: 00 Cyanocobala 2020-0 No 1000 Cyanocobal min 6-01 greene 00:00: 00 Cyanocobala 2020-0 No 1000 Cyanocobal min 3-06 greene 00:00: 00 Feraheme 2020-0 No 510mg Feraheme 2-06 00:00: 00 Sodium 2020-0 No 50mL Sodium Chloride 2-06 Chloride 00:00: 00 Cyanocobala 2020-0 No 1000 Cyanocobal min 2-06 greene 00:00: 00 Feraheme 2020-0 No 510mg Feraheme 1-27 00:00: 00 Sodium 2020-0 No 50mL Sodium Chloride 1-27 Chloride 00:00: 00 Feraheme 2019-1 No 510mg Feraheme 2-13 00:00: 00 Sodium 2019-1 No 100mL Sodium Chloride 2-13 Chloride 00:00: 00 Feraheme 2019-1 No 510mg Feraheme 2-03 00:00: 00 Sodium 2019-1 No 100mL Sodium Chloride 2-03 Chloride 00:00: 00 Cyanocobala 2019-1 No 1000 Cyanocobal min 1-08 greene 00:00: 00 Cyanocobala 2019-1 No 1000 Cyanocobal min 0-11 greene 00:00: 00 Feraheme 2019-1 No 510mg Feraheme 0-11 00:00: 00 Sodium 2019-1 No 180mL Sodium Chloride 0-11 Chloride 00:00: 00 Feraheme 2019-1 No 510mg Feraheme 0-03 00:00: 00 Sodium 2019-1 No 100mL Sodium Chloride 0-03 Chloride 00:00: 00 Cyanocobala 2019-0 No 1000 Cyanocobal min 9-13 greene 00:00: 00 Cyanocobala 2019-0 No 1000 Cyanocobal min 8-16 greene 00:00: 00 Feraheme 2019-0 2020- No 510mg Feraheme 8-16 10-12 00:00: 00:00 00 :00 Sodium 2019-0 2020- No 100mL Sodium Chloride 8-16 10-12 Chloride 00:00: 00:00 00 :00 Cyanocobala 2019-0 No 1000 Cyanocobal min 8-15 greene 00:00: 00 Cyanocobala 2019-0 No 1000 Cyanocobal min 8-14 greene 00:00: 00 Cyanocobala 2019-0 No 1000 Cyanocobal min 8-13 greene 00:00: 00 Cyanocobala 2019-0 No 1000 Cyanocobal min 8-12 greene 00:00: 00 Cyanocobala 2019-0 No 1000 Cyanocobal min 8-09 greene 00:00: 00 Cyanocobala 2019-0 No 1000 Cyanocobal min 808 greene 00:00: 00 Cyanocobala 2019-0 2020- No 1000 Cyanocobal min 8 10-19 greene 00:00: 00:00 00 :00 cyclobenzap No 1 TID cyclobenza rine 10 mg blas 10 tablet Take mg tablet 1 tablet 3 Take 1 times a day tablet 3 by oral times a route as day by needed. oral route as needed. hydrocodone No 1 Q6H hydrocodon 5 e 5 mg-acetamin mg-acetami ophen 325 nophen 325 mg tablet mg tablet Take 1 Take 1 tablet tablet every 6 every 6 hours by hours by oral route oral route as needed. as needed. Pennsaid 20 No Pennsaid mg/gram/act 20 uation (2 mg/gram/ac %) topical tuation (2 soln in %) topical metered-dos soln in e pump metered-do APPLY 2 se pump PUMPS (40 APPLY 2 MG) TO THE PUMPS (40 AFFECTED MG) TO THE KNEE(S) BY AFFECTED TOPICAL KNEE(S) BY ROUTE 2 TOPICAL TIMES PER ROUTE 2 DAY TIMES PER DAY Biotin 2019- No 09-22 14:37 :50 Probiotic 2019- 09-22 14:37 :54 Problems Condition Condition Condition Status Onset Resolution Last Treatin g Comments Name Details Category Date Date Treatment Clinician Date Influenza Influenza Diagnosis active 2019-07 vaccination vaccination 0-05 given given 00:00: 00 Elevated Elevated Diagnosis active liver liver 9-21 enzymes enzymes 00:00: level level 00 Torticollis Torticollis Problem Active 2018-07 00:00: 00 Plantar Plantar Problem Active fasciitis Fasciitis 6-24 of left of Left 00:00: foot Foot 00 Intestinal Intestinal Diagnosis active malabsorpti malabsorpti on on Iron Iron Diagnosis active deficiency deficiency anemia anemia Vitamin B12 Vitamin B12 Diagnosis active deficiency deficiency anemia due anemia due to dietary to dietary causes causes Procedures Procedure Date / Time Performed Performing Clinician Louie OCHOA, cervical spine 2019-06-06 00:00:00 colonoscopy 2018-07-20 00:00:00 EGD 2017-07-20 00:00:00 Gastric bypass Results Test Description Test Time Test Comments Text Results Atomic Results Result Comments IRON\S\ 2020-05-25 14:10:00 Test Item Value Reference Range Comments IRON (test code = FE) 111.1 ug/dL 37-170 FERRITIN\S\2020-05-25 14:10:00 Test Item Value Reference Range Comments FERRITIN (test code = FERRE) 170.00 ng/mL 6.2-137.0 A1 ANTITRYPSIN PHENOTYPE\S\2020-05-25 14:10:00 Test Item Value Reference Range Comments [id number]-6-[id number] PHENOTYPE (test code = MS . [id number]) [id number] 15:18:00 Test Item Value Reference Range Comments WBC (test code = WBC) 5.6000 4.0000-10.0000 Lymphocytes % (test code = Lymphocytes %) 25.4000 % 22.400 0-43.6000 MID% (test code = MID%) 5.4000 % 1.2000-11.1999 Neutrophils % (test code = Neutrophils %) 69.2000 % 48.900 0-69.9000 Lymphocytes (test code = Lymphocytes) 1.4000 1.2000-3.2 000 MID (test code = MID) 0.4000 0.1000-1.1000 Neutrophils (test code = Neutrophils) 3.8000 1.5000-6.7 000 RBC (test code = RBC) 4.6500 3.7000-4.9000 HGB (test code = HGB) 13.7000 g/dL 11.2000-18.0000 HCT (test code = HCT) 44.1000 % 34.0000-44.0000 MCV (test code = MCV) 94.8000 fL 80.0000-94.0000 MCH (test code = MCH) 29.6000 pg 27.0000-34.0000 MCHC (test code = MCHC) 31.2000 g/dL 31.5000-36.0000 RDW (test code = RDW) 15.7000 11.0000-18.0000 PLT (test code = PLT) 201.0000 140.0000-440.0000 MPV (test code = MPV) 9.0000 fL 6.8000-10.6000 [id number] 15:13:00 Test Item Value Reference Range Comments WBC (test code = WBC) 6.0000 4.0000-10.0000 Lymphocytes % (test code = Lymphocytes %) 31.7000 % 22.400 0-43.6000 MID% (test code = MID%) 6.3000 % .1999- Neutrophils % (test code = Neutrophils %) 62.0000 % 48.900 0-69.9000 Lymphocytes (test code = Lymphocytes) 1.9000 1.2000-3.2 000 MID (test code = MID) 0.4000 0.1000-1.1000 Neutrophils (test code = Neutrophils) 3.7000 1.5000-6.7 000 RBC (test code = RBC) 4.4400 3.7000-4.9000 HGB (test code = HGB) 13.5000 g/dL 11.1999-18.0000 HCT (test code = HCT) 41.3000 % 34.0000-44.0000 MCV (test code = MCV) 93.0000 fL 80.0000-94.0000 MCH (test code = MCH) 30.4000 pg 27.0000-34.0000 MCHC (test code = MCHC) 32.6000 g/dL 31.5000-36.0000 RDW (test code = RDW) 15.6000 11.0000-18.0000 PLT (test code = PLT) 193.0000 140.0000-440.0000 MPV (test code = MPV) 8.7000 fL 6.8000-10.6000 [id number] 14:30:00 Test Item Value Reference Range Comments WBC (test code = WBC) 7.1000 4.0000-10.0000 Lymphocytes % (test code = Lymphocytes %) 21.3000 % 22.400 0-43.6000 MID% (test code = MID%) 6.1000 % .1999- Neutrophils % (test code = Neutrophils %) 72.6000 % 48.900 0-69.9000 Lymphocytes (test code = Lymphocytes) 1.5000 1.2000-3.2 000 MID (test code = MID) 0.4000 0.1000-1.1000 Neutrophils (test code = Neutrophils) 5.2000 1.5000-6.7 000 RBC (test code = RBC) 4.5700 3.7000-4.9000 HGB (test code = HGB) 14.1000 g/dL 11.2000-18.0000 HCT (test code = HCT) 43.3000 % 34.0000-44.0000 MCV (test code = MCV) 94.7000 fL 80.0000-94.0000 MCH (test code = MCH) 30.9000 pg 27.0000-34.0000 MCHC (test code = MCHC) 32.6000 g/dL 31.5000-36.0000 RDW (test code = RDW) 16.0000 11.0000-18.0000 PLT (test code = PLT) 205.0000 140.0000-440.0000 MPV (test code = MPV) 9.2000 fL 6.8000-10.6000 [id number] 13:10:00 Test Item Value Reference Range Comments WBC (test code = WBC) 6.5000 4.0000-10.0000 Lymphocytes % (test code = Lymphocytes %) 25.1000 % 22.400 0-43.6000 MID% (test code = MID%) 5.7000 % 1.2000-11.1999 Neutrophils % (test code = Neutrophils %) 69.2000 % 48.900 0-69.9000 Lymphocytes (test code = Lymphocytes) 1.6000 1.2000-3.2 000 MID (test code = MID) 0.4000 0.1000-1.1000 Neutrophils (test code = Neutrophils) 4.5000 1.5000-6.7 000 RBC (test code = RBC) 4.2600 3.7000-4.9000 HGB (test code = HGB) 13.2000 g/dL 11.2000-18.0000 HCT (test code = HCT) 41.0000 % 34.0000-44.0000 MCV (test code = MCV) 96.3000 fL 80.0000-94.0000 MCH (test code = MCH) 31.0000 pg 27.0000-34.0000 MCHC (test code = MCHC) 32.2000 g/dL 31.5000-36.0000 RDW (test code = RDW) 15.5000 11.0000-18.0000 PLT (test code = PLT) 182.0000 140.0000-440.0000 MPV (test code = MPV) 9.5000 fL 6.8000-10.6000 [id number] 15:03:00 Test Item Value Reference Range Comments WBC (test code = WBC) 6.1000 4.0000-10.0000 Lymphocytes % (test code = Lymphocytes %) 26.1000 % 22.400 0-43.6000 MID% (test code = MID%) 6.7000 % 1.1999-11.1999 Neutrophils % (test code = Neutrophils %) 67.2000 % 48.900 0-69.9000 Lymphocytes (test code = Lymphocytes) 1.6000 1.2000-3.2 000 MID (test code = MID) 0.4000 0.1000-1.1000 Neutrophils (test code = Neutrophils) 4.1000 1.5000-6.7 000 RBC (test code = RBC) 4.3500 3.7000-4.9000 HGB (test code = HGB) 13.9000 g/dL 11.2000-18.0000 HCT (test code = HCT) 43.4000 % 34.0000-44.0000 MCV (test code = MCV) 99.8000 fL 80.0000-94.0000 MCH (test code = MCH) 32.0000 pg 27.0000-34.0000 MCHC (test code = MCHC) 32.0000 g/dL 31.5000-36.0000 RDW (test code = RDW) 15.9000 11.0000-18.0000 PLT (test code = PLT) 168.0000 140.0000-440.0000 MPV (test code = MPV) 9.6000 fL 6.8000-10.6000 [id number] 15:40:00 Test Item Value Reference Range Comments Creatinine (test code = Creatinine) 0.6900 mg/dL 0.5700-1.000 0 Cr Clearance (Est) (test code = Cr 211.0900 75.0000-115.0 000 Clearance (Est)) Glucose (test code = Glucose) 91.0000 mg/dL 65.0000-99.0000 BUN (test code = BUN) 14.0000 mg/dL 6.0000-24.0000 eGFR Cyx-Pyloled-Ankkeraa (test code = 107.0000 eGFR Lvb-Ayoceni-Jfjobfia) eGFR -Bahraini (test code = eGFR 123.0000 -Bahraini) BUN/Creat Ratio (test code = BUN/Creat 20.0000 9.0000-23 .0000 Ratio) Sodium (test code = Sodium) 140.0000 mmol/L 134.0000-144.0000 Potassium (test code = Potassium) 4.6000 mmol/L 3.5000-5.2000 Chloride (test code = Chloride) 101.0000 mmol/L 96.0000-106.0000 CO2 (test code = CO2) 25.0000 mmol/L 20.0000-29.0000 Calcium (test code = Calcium) 8.7000 mg/dL 8.7000-10.2000 Protein, Total (test code = Protein, 5.8000 g/dL 6.0000-8.50 00 Total) Albumin (test code = Albumin) 3.8000 g/dL 3.8000-4.8000 Globulin (test code = Globulin) 2.0000 g/dL 1.5000-4.5000 A/G Ratio (test code = A/G Ratio) 1.9000 1.2000-2.2000 Bilirubin, Total (test code = Bilirubin, 0.2000 mg/dL 0.0000- 1.2000 Total) Alkaline Phosphatase (test code = Alkaline 172.0000 39.00 00-117.0000 Phosphatase) AST (SGOT) (test code = AST (SGOT)) 30.0000 0.0000-40.00 00 ALT (SGPT) (test code = ALT (SGPT)) 38.0000 0.0000-32.00 00 Iron, Total (test code = Iron, Total) 30.0000 27.0000-15 9.0000 TIBC (test code = TIBC) 334.0000 250.0000-450.0000 UIBC (test code = UIBC) 304.0000 131.0000-425.0000 % Iron Saturation (test code = % Iron 9.0000 % 15.0000-55 .0000 Saturation) Ferritin (test code = Ferritin) 20.0000 ng/mL 15.0000-150.0000 [id number] 14:06:00 Test Item Value Reference Range Comments WBC (test code = WBC) 5.2000 4.0000-10.0000 Lymphocytes % (test code = Lymphocytes %) 30.4000 % 22.400 0-43.6000 MID% (test code = MID%) 5.8000 % 1.2000-11.2000 Neutrophils % (test code = Neutrophils %) 63.8000 % 48.900 0-69.9000 Lymphocytes (test code = Lymphocytes) 1.5000 1.2000-3.2 000 MID (test code = MID) 0.4000 0.1000-1.1000 Neutrophils (test code = Neutrophils) 3.3000 1.5000-6.7 000 RBC (test code = RBC) 3.4000 3.7000-4.9000 HGB (test code = HGB) 10.9000 g/dL 11.2000-18.0000 HCT (test code = HCT) 34.3000 % 34.0000-44.0000 MCV (test code = MCV) 100.9000 fL 80.0000-94.0000 MCH (test code = MCH) 32.1000 pg 27.0000-34.0000 MCHC (test code = MCHC) 31.8000 g/dL 31.5000-36.0000 RDW (test code = RDW) 15.6000 11.0000-18.0000 PLT (test code = PLT) 223.0000 140.0000-440.0000 MPV (test code = MPV) 8.3000 fL 6.8000-10.6000 [id number] 15:22:00 Test Item Value Reference Range Comments Creatinine (test code = Creatinine) 0.6000 mg/dL 0.5700-1.000 0 Cr Clearance (Est) (test code = Cr 249.9800 75.0000-115.0 000 Clearance (Est)) Glucose (test code = Glucose) 83.0000 mg/dL 65.0000-99.0000 BUN (test code = BUN) 10.0000 mg/dL 6.0000-24.0000 eGFR Mes-Bqerjjs-Oapszcfh (test code = 113.0000 eGFR Cvl-Bjpqlsm-Rqevvfwz) eGFR -Bahraini (test code = eGFR 130.0000 -Bahraini) BUN/Creat Ratio (test code = BUN/Creat 17.0000 9.0000-23 .0000 Ratio) Sodium (test code = Sodium) 138.0000 mmol/L 134.0000-144.0000 Potassium (test code = Potassium) 4.2000 mmol/L 3.5000-5.2000 Chloride (test code = Chloride) 99.0000 mmol/L 96.0000-106.0000 CO2 (test code = CO2) 23.0000 mmol/L 20.0000-29.0000 Calcium (test code = Calcium) 8.7000 mg/dL 8.7000-10.2000 Protein, Total (test code = Protein, 6.2000 g/dL 6.0000-8.50 00 Total) Albumin (test code = Albumin) 3.9000 g/dL 3.8000-4.8000 Globulin (test code = Globulin) 2.3000 g/dL 1.5000-4.5000 A/G Ratio (test code = A/G Ratio) 1.7000 1.2000-2.2000 Bilirubin, Total (test code = Bilirubin, 0.2000 mg/dL 0.0000- 1.2000 Total) Alkaline Phosphatase (test code = Alkaline 215.0000 39.00 00-117.0000 Phosphatase) AST (SGOT) (test code = AST (SGOT)) 40.0000 0.0000-40.00 00 ALT (SGPT) (test code = ALT (SGPT)) 46.0000 0.0000-32.00 00 Iron, Total (test code = Iron, Total) 81.0000 27.0000-15 9.0000 TIBC (test code = TIBC) 293.0000 250.0000-450.0000 UIBC (test code = UIBC) 212.0000 131.0000-425.0000 % Iron Saturation (test code = % Iron 28.0000 % 15.0000-55 .0000 Saturation) Ferritin (test code = Ferritin) 217.0000 ng/mL 15.0000-150.0000 [id number] 14:23:00 Test Item Value Reference Range Comments WBC (test code = WBC) 6.5000 4.0000-10.0000 Lymphocytes % (test code = Lymphocytes %) 24.7000 % 22.400 0-43.6000 MID% (test code = MID%) 6.5000 % 1.2000-11.2000 Neutrophils % (test code = Neutrophils %) 68.8000 % 48.900 0-69.9000 Lymphocytes (test code = Lymphocytes) 1.6000 1.2000-3.2 000 MID (test code = MID) 0.5000 0.1000-1.1000 Neutrophils (test code = Neutrophils) 4.4000 1.5000-6.7 000 RBC (test code = RBC) 4.7300 3.7000-4.9000 HGB (test code = HGB) 14.5000 g/dL 11.2000-18.0000 HCT (test code = HCT) 45.4000 % 34.0000-44.0000 MCV (test code = MCV) 95.9000 fL 80.0000-94.0000 MCH (test code = MCH) 30.6000 pg 27.0000-34.0000 MCHC (test code = MCHC) 31.9000 g/dL 31.5000-36.0000 RDW (test code = RDW) 15.2000 11.0000-18.0000 PLT (test code = PLT) 181.0000 140.0000-440.0000 MPV (test code = MPV) 9.1000 fL 6.8000-10.6000 [id number] 11:44:00 Test Item Value Reference Range Comments Creatinine (test code = Creatinine) 0.7800 mg/dL 0.5700-1.000 0 Cr Clearance (Est) (test code = Cr 188.3900 75.0000-115.0 000 Clearance (Est)) Glucose (test code = Glucose) 96.0000 mg/dL 65.0000-99.0000 BUN (test code = BUN) 10.0000 mg/dL 6.0000-24.0000 eGFR Jgz-Soynhzb-Pamkdunm (test code = 94.0000 eGFR Xob-Squtybi-Ioeqqrer) eGFR -Bahraini (test code = eGFR 108.0000 -Bahraini) BUN/Creat Ratio (test code = BUN/Creat 13.0000 9.0000-23 .0000 Ratio) Sodium (test code = Sodium) 138.0000 mmol/L 134.0000-144.0000 Potassium (test code = Potassium) 4.2000 mmol/L 3.5000-5.2000 Chloride (test code = Chloride) 100.0000 mmol/L 96.0000-106.0000 CO2 (test code = CO2) 21.0000 mmol/L 20.0000-29.0000 Calcium (test code = Calcium) 9.1000 mg/dL 8.7000-10.2000 Protein, Total (test code = Protein, 6.5000 g/dL 6.0000-8.50 00 Total) Albumin (test code = Albumin) 4.0000 g/dL 3.5000-5.5000 Globulin (test code = Globulin) 2.5000 g/dL 1.5000-4.5000 A/G Ratio (test code = A/G Ratio) 1.6000 1.2000-2.2000 Bilirubin, Total (test code = Bilirubin, 0.2000 mg/dL 0.0000- 1.2000 Total) Alkaline Phosphatase (test code = Alkaline 185.0000 39.00 00-117.0000 Phosphatase) AST (SGOT) (test code = AST (SGOT)) 34.0000 0.0000-40.00 00 ALT (SGPT) (test code = ALT (SGPT)) 24.0000 0.0000-32.00 00 Iron, Total (test code = Iron, Total) 57.0000 27.0000-15 9.0000 TIBC (test code = TIBC) 334.0000 250.0000-450.0000 UIBC (test code = UIBC) 277.0000 131.0000-425.0000 % Iron Saturation (test code = % Iron 17.0000 % 15.0000-55 .0000 Saturation) Uric Acid (test code = Uric Acid) 4.7000 mg/dL 2.5000-7.1000 Ferritin (test code = Ferritin) 76.0000 ng/mL 15.0000-150.0000 C-Reactive [id number] 11:44:00 Test Item Value Reference Range Comments C-Reactive Protein (test code = C-Reactive 1.0000 mg/L 0.000 0-10.0000 Protein) CCP Antibodies IgG/IgA (test code = CCP 9.0000 U 0.0000-1 9.0000 Antibodies IgG/IgA) Actin (Smooth Muscle) Ab (test code = Actin 10.0000 U 0.00 00-19.0000 (Smooth Muscle) Ab) Anti-ds DNA (test code = Anti-ds DNA) 1.0000 0.0000-9.0 000 Complement, Total (CH50) (test code = 60.0000 42.0000-99 9999.0000 Complement, Total (CH50)) Antinuclear Antibodies (test code = Negative Antinuclear Antibodies) [id number] 16:08:00 Test Item Value Reference Range Comments WBC (test code = WBC) 6.0000 4.0000-10.0000 Lymphocytes % (test code = Lymphocytes %) 32.3000 % 22.400 0-43.6000 MID% (test code = MID%) 7.4000 % 1.2000-11.2000 Neutrophils % (test code = Neutrophils %) 60.3000 % 48.900 0-69.9000 Lymphocytes (test code = Lymphocytes) 1.9000 1.2000-3.2 000 MID (test code = MID) 0.5000 0.1000-1.1000 Neutrophils (test code = Neutrophils) 3.6000 1.5000-6.7 000 RBC (test code = RBC) 4.5400 3.7000-4.9000 HGB (test code = HGB) 13.6000 g/dL 11.2000-18.0000 HCT (test code = HCT) 42.5000 % 34.0000-44.0000 MCV (test code = MCV) 93.7000 fL 80.0000-94.0000 MCH (test code = MCH) 30.1000 pg 27.0000-34.0000 MCHC (test code = MCHC) 32.1000 g/dL 31.5000-36.0000 RDW (test code = RDW) 15.6000 11.0000-18.0000 PLT (test code = PLT) 167.0000 140.0000-440.0000 MPV (test code = MPV) 8.9000 fL 6.8000-10.6000 [id number] 14:40:00 Test Item Value Reference Range Comments Creatinine (test code = Creatinine) 0.7100 mg/dL 0.5700-1.000 0 Cr Clearance (Est) (test code = Cr 209.7700 75.0000-115.0 000 Clearance (Est)) Glucose (test code = Glucose) 105.0000 mg/dL 65.0000-99.0000 BUN (test code = BUN) 11.0000 mg/dL 6.0000-24.0000 eGFR Mvf-Ovndjif-Ytsssezf (test code = 105.0000 eGFR Mtv-Yumiiim-Rgfpdkkt) eGFR -Bahraini (test code = eGFR 121.0000 -B[place]raini) BUN/Creat Ratio (test code = BUN/Creat 15.0000 9.0000-23 .0000 Ratio) Sodium (test code = Sodium) 142.0000 mmol/L 134.0000-144.0000 Potassium (test code = Potassium) 4.3000 mmol/L 3.5000-5.2000 Chloride (test code = Chloride) 103.0000 mmol/L 96.0000-106.0000 CO2 (test code = CO2) 25.0000 mmol/L 20.0000-29.0000 Calcium (test code = Calcium) 9.1000 mg/dL 8.7000-10.2000 Protein, Total (test code = Protein, 6.1000 g/dL 6.0000-8.50 00 Total) Albumin (test code = Albumin) 3.9000 g/dL 3.5000-5.5000 Globulin (test code = Globulin) 2.2000 g/dL 1.5000-4.5000 A/G Ratio (test code = A/G Ratio) 1.8000 1.2000-2.2000 Bilirubin, Total (test code = Bilirubin, 0.2000 mg/dL 0.0000- 1.2000 Total) Alkaline Phosphatase (test code = Alkaline 154.0000 39.00 00-117.0000 Phosphatase) AST (SGOT) (test code = AST (SGOT)) 34.0000 0.0000-40.00 00 ALT (SGPT) (test code = ALT (SGPT)) 28.0000 0.0000-32.00 00 Iron, Total (test code = Iron, Total) 49.0000 27.0000-15 9.0000 TIBC (test code = TIBC) 365.0000 250.0000-450.0000 UIBC (test code = UIBC) 316.0000 131.0000-425.0000 % Iron Saturation (test code = % Iron 13.0000 % 15.0000-55 .0000 Saturation) Ferritin (test code = Ferritin) 271.0000 ng/mL 15.0000-150.0000 [id number] 15:44:00 Test Item Value Reference Range Comments WBC (test code = WBC) 5.3000 4.0000-10.0000 Lymphocytes % (test code = Lymphocytes %) 28.8000 % 22.400 0-43.6000 MID% (test code = MID%) 5.7000 % 1.2000-11.2000 Neutrophils % (test code = Neutrophils %) 65.5000 % 48.900 0-69.9000 Lymphocytes (test code = Lymphocytes) 1.5000 1.2000-3.2 000 MID (test code = MID) 0.3000 0.1000-1.1000 Neutrophils (test code = Neutrophils) 3.5000 1.5000-6.7 000 RBC (test code = RBC) 4.1600 3.7000-4.9000 HGB (test code = HGB) 12.3000 g/dL 11.2000-18.0000 HCT (test code = HCT) 38.3000 % 34.0000-44.0000 MCV (test code = MCV) 91.9000 fL 80.0000-94.0000 MCH (test code = MCH) 29.6000 pg 27.0000-34.0000 MCHC (test code = MCHC) 32.2000 g/dL 31.5000-36.0000 RDW (test code = RDW) 17.1000 11.0000-18.0000 PLT (test code = PLT) 252.0000 140.0000-440.0000 MPV (test code = MPV) 8.1000 fL 6.8000-10.6000 [id number] 15:04:00 Test Item Value Reference Range Comments IGA (test code = IGA) 206.0000 mg/dL 87.0000-352.0000 Endomysial Ab IgA (test code = Endomysial Ab Negative IgA) Transglutaminase IgG, Qt (test code = 2.0000 0.0000-5.0 000 Transglutaminase IgG, Qt) t-Transglutaminase IgA, Qt (test code = 2.0000 0.0000-3 .0000 t-Transglutaminase IgA, Qt) Deamidated Gliadin Abs, IgA (test code = 8.0000 U 0.0000- 19.0000 Deamidated Gliadin Abs, IgA) Deamidated Gliadin Abs, IgG (test code = 3.0000 U 0.0000- 19.0000 Deamidated Gliadin Abs, IgG) [id number] 15:04:00 Test Item Value Reference Range Comments Creatinine (test code = Creatinine) 0.7500 mg/dL 0.5700-1.000 0 Cr Clearance (Est) (test code = Cr 196.7600 75.0000-115.0 000 Clearance (Est)) Glucose (test code = Glucose) 97.0000 mg/dL 65.0000-99.0000 BUN (test code = BUN) 11.0000 mg/dL 6.0000-24.0000 eGFR Zrr-Ptdablj-Dnirhyep (test code = 99.0000 eGFR Dei-Omoanwz-Zwcajrdj) eGFR -B[place] (test code = eGFR 114.0000 -[place]) BUN/Creat Ratio (test code = BUN/Creat 15.0000 9.0000-23 .0000 Ratio) Sodium (test code = Sodium) 140.0000 mmol/L 134.0000-144.0000 Potassium (test code = Potassium) 6.3000 mmol/L 3.5000-5.2000 Chloride (test code = Chloride) 105.0000 mmol/L 96.0000-106.0000 CO2 (test code = CO2) 21.0000 mmol/L 20.0000-29.0000 Calcium (test code = Calcium) 8.8000 mg/dL 8.7000-10.2000 Protein, Total (test code = Protein, 6.5000 g/dL 6.0000-8.50 00 Total) Albumin (test code = Albumin) 4.0000 g/dL 3.5000-5.5000 Globulin (test code = Globulin) 2.5000 g/dL 1.5000-4.5000 A/G Ratio (test code = A/G Ratio) 1.6000 1.2000-2.2000 Bilirubin, Total (test code = Bilirubin, 0.2000 mg/dL 0.0000- 1.2000 Total) Alkaline Phosphatase (test code = Alkaline 132.0000 39.00 00-117.0000 Phosphatase) AST (SGOT) (test code = AST (SGOT)) 27.0000 0.0000-40.00 00 ALT (SGPT) (test code = ALT (SGPT)) 21.0000 0.0000-32.00 00 Iron, Total (test code = Iron, Total) 44.0000 27.0000-15 9.0000 TIBC (test code = TIBC) 353.0000 250.0000-450.0000 UIBC (test code = UIBC) 309.0000 131.0000-425.0000 % Iron Saturation (test code = % Iron 12.0000 % 15.0000-55 .0000 Saturation) Ferritin (test code = Ferritin) 45.0000 ng/mL 15.0000-150.0000 [id number] 15:56:00 Test Item Value Reference Range Comments WBC (test code = WBC) 6.2000 4.0000-10.0000 Lymphocytes % (test code = Lymphocytes %) 24.7000 % 22.400 0-43.6000 MID% (test code = MID%) 5.9000 % 1.2000-11.2000 Neutrophils % (test code = Neutrophils %) 69.4000 % 48.900 0-69.9000 Lymphocytes (test code = Lymphocytes) 1.5000 1.2000-3.2 000 MID (test code = MID) 0.4000 0.1000-1.1000 Neutrophils (test code = Neutrophils) 4.3000 1.5000-6.7 000 RBC (test code = RBC) 4.6800 3.7000-4.9000 HGB (test code = HGB) 13.3000 g/dL 11.2000-18.0000 HCT (test code = HCT) 41.6000 % 34.0000-44.0000 MCV (test code = MCV) 88.9000 fL 80.0000-94.0000 MCH (test code = MCH) 28.5000 pg 27.0000-34.0000 MCHC (test code = MCHC) 32.1000 g/dL 31.5000-36.0000 RDW (test code = RDW) 18.7000 11.0000-18.0000 PLT (test code = PLT) 230.0000 140.0000-440.0000 MPV (test code = MPV) 8.0000 fL 6.8000-10.6000 [id number] 13:19:00 Test Item Value Reference Range Comments Creatinine (test code = Creatinine) 0.7000 mg/dL 0.5700-1.000 0 Cr Clearance (Est) (test code = Cr 208.5700 75.0000-115.0 000 Clearance (Est)) Glucose (test code = Glucose) 105.0000 mg/dL 65.0000-99.0000 BUN (test code = BUN) 15.0000 mg/dL 6.0000-24.0000 eGFR Wpb-Wheurkv-Zcgeadeu (test code = 107.0000 eGFR Add-Ydbmozk-Efnllmbv) eGFR -[place] (test code = eGFR 124.0000 -[place]) BUN/Creat Ratio (test code = BUN/Creat 21.0000 9.0000-23 .0000 Ratio) Sodium (test code = Sodium) 140.0000 mmol/L 134.0000-144.0000 Potassium (test code = Potassium) 4.5000 mmol/L 3.5000-5.2000 Chloride (test code = Chloride) 102.0000 mmol/L 96.0000-106.0000 CO2 (test code = CO2) 23.0000 mmol/L 20.0000-29.0000 Calcium (test code = Calcium) 9.1000 mg/dL 8.7000-10.2000 Protein, Total (test code = Protein, 6.8000 g/dL 6.0000-8.50 00 Total) Albumin (test code = Albumin) 4.3000 g/dL 3.5000-5.5000 Globulin (test code = Globulin) 2.5000 g/dL 1.5000-4.5000 A/G Ratio (test code = A/G Ratio) 1.7000 1.2000-2.2000 Bilirubin, Total (test code = Bilirubin, 0.2000 mg/dL 0.0000- 1.2000 Total) Alkaline Phosphatase (test code = Alkaline 140.0000 39.00 00-117.0000 Phosphatase) AST (SGOT) (test code = AST (SGOT)) 28.0000 0.0000-40.00 00 ALT (SGPT) (test code = ALT (SGPT)) 22.0000 0.0000-32.00 00 Iron, Total (test code = Iron, Total) 32.0000 27.0000-15 9.0000 TIBC (test code = TIBC) 432.0000 250.0000-450.0000 UIBC (test code = UIBC) 400.0000 131.0000-425.0000 % Iron Saturation (test code = % Iron 7.0000 % 15.0000-55 .0000 Saturation) Ferritin (test code = Ferritin) 24.0000 ng/mL 15.0000-150.0000 [id number] 16:25:00 Test Item Value Reference Range Comments WBC (test code = WBC) 5.6000 4.0000-10.0000 Lymphocytes % (test code = Lymphocytes %) 26.7000 % 22.400 0-43.6000 MID% (test code = MID%) 7.0000 % 1.2000-11.2000 Neutrophils % (test code = Neutrophils %) 66.3000 % 48.900 0-69.9000 Lymphocytes (test code = Lymphocytes) 1.5000 1.2000-3.2 000 MID (test code = MID) 0.4000 0.1000-1.1000 Neutrophils (test code = Neutrophils) 3.7000 1.5000-6.7 000 RBC (test code = RBC) 4.8900 3.7000-4.9000 HGB (test code = HGB) 12.8000 g/dL 11.2000-18.0000 HCT (test code = HCT) 41.9000 % 34.0000-44.0000 MCV (test code = MCV) 85.6000 fL 80.0000-94.0000 MCH (test code = MCH) 26.2000 pg 27.0000-34.0000 MCHC (test code = MCHC) 30.6000 g/dL 31.5000-36.0000 RDW (test code = RDW) 18.2000 11.0000-18.0000 PLT (test code = PLT) 233.0000 140.0000-440.0000 MPV (test code = MPV) 8.6000 fL 6.8000-10.6000 [id number] 14:15:00 Test Item Value Reference Range Comments Creatinine (test code = Creatinine) 0.6300 mg/dL 0.5700-1.000 0 Cr Clearance (Est) (test code = Cr 230.7400 75.0000-115.0 000 Clearance (Est)) Glucose (test code = Glucose) 96.0000 mg/dL 65.0000-99.0000 BUN (test code = BUN) 10.0000 mg/dL 6.0000-24.0000 eGFR Xkr-Pebuldi-Mwevquwj (test code = 111.0000 eGFR Mel-Spdwltg-Papimvbl) eGFR -Bahraini (test code = eGFR 128.0000 -Bahraini) BUN/Creat Ratio (test code = BUN/Creat 16.0000 9.0000-23 .0000 Ratio) Sodium (test code = Sodium) 143.0000 mmol/L 134.0000-144.0000 Potassium (test code = Potassium) 4.7000 mmol/L 3.5000-5.2000 Chloride (test code = Chloride) 108.0000 mmol/L 96.0000-106.0000 CO2 (test code = CO2) 22.0000 mmol/L 20.0000-29.0000 Calcium (test code = Calcium) 8.5000 mg/dL 8.7000-10.2000 Protein, Total (test code = Protein, 6.1000 g/dL 6.0000-8.50 00 Total) Albumin (test code = Albumin) 3.9000 g/dL 3.5000-5.5000 Globulin (test code = Globulin) 2.2000 g/dL 1.5000-4.5000 A/G Ratio (test code = A/G Ratio) 1.8000 1.2000-2.2000 Bilirubin, Total (test code = Bilirubin, 0.2000 mg/dL 0.0000- 1.2000 Total) Alkaline Phosphatase (test code = Alkaline 123.0000 39.00 00-117.0000 Phosphatase) AST (SGOT) (test code = AST (SGOT)) 20.0000 0.0000-40.00 00 ALT (SGPT) (test code = ALT (SGPT)) 18.0000 0.0000-32.00 00 Iron, Total (test code = Iron, Total) 16.0000 27.0000-15 9.0000 TIBC (test code = TIBC) 428.0000 250.0000-450.0000 UIBC (test code = UIBC) 412.0000 131.0000-425.0000 % Iron Saturation (test code = % Iron 4.0000 % 15.0000-55 .0000 Saturation) Ferritin (test code = Ferritin) 31.0000 ng/mL 15.0000-150.0000 [id number] 16:17:00 Test Item Value Reference Range Comments WBC (test code = WBC) 4.8000 4.0000-10.0000 Lymphocytes % (test code = Lymphocytes %) 29.7000 % 22.400 0-43.6000 MID% (test code = MID%) 6.0000 % 1.2000-11.1999 Neutrophils % (test code = Neutrophils %) 64.3000 % 48.900 0-69.9000 Lymphocytes (test code = Lymphocytes) 1.4000 1.2000-3.2 000 MID (test code = MID) 0.3000 0.1000-1.1000 Neutrophils (test code = Neutrophils) 3.1000 1.5000-6.7 000 RBC (test code = RBC) 4.1100 3.7000-4.9000 HGB (test code = HGB) 10.2000 g/dL 11.2000-18.0000 HCT (test code = HCT) 34.4000 % 34.0000-44.0000 MCV (test code = MCV) 83.8000 fL 80.0000-94.0000 MCH (test code = MCH) 24.8000 pg 27.0000-34.0000 MCHC (test code = MCHC) 29.6000 g/dL 31.5000-36.0000 RDW (test code = RDW) 16.5000 11.0000-18.0000 PLT (test code = PLT) 296.0000 140.0000-440.0000 MPV (test code = MPV) 8.1000 fL 6.8000-10.6000 [id number] 15:41:00 Test Item Value Reference Range Comments WBC (test code = WBC) 5.9000 4.0000-10.0000 Lymphocytes % (test code = Lymphocytes %) 32.1000 % 22.400 0-43.6000 MID% (test code = MID%) 7.2000 % 1.2000-11.1999 Neutrophils % (test code = Neutrophils %) 60.7000 % 48.900 0-69.9000 Lymphocytes (test code = Lymphocytes) 1.9000 1.2000-3.2 000 MID (test code = MID) 0.4000 0.1000-1.1000 Neutrophils (test code = Neutrophils) 3.6000 1.5000-6.7 000 RBC (test code = RBC) 4.1700 3.7000-4.9000 HGB (test code = HGB) 10.8000 g/dL 11.2000-18.0000 HCT (test code = HCT) 35.8000 % 34.0000-44.0000 MCV (test code = MCV) 85.9000 fL 80.0000-94.0000 MCH (test code = MCH) 25.8000 pg 27.0000-34.0000 MCHC (test code = MCHC) 30.1000 g/dL 31.5000-36.0000 RDW (test code = RDW) 17.6000 11.0000-18.0000 PLT (test code = PLT) 173.0000 140.0000-440.0000 MPV (test code = MPV) 8.4000 fL 6.8000-10.6000 Assessments Condition Name Status Diagnosis Date Treating Clinici an Torticollis Active 2019-06-06 16:35:04 Neck pain Active 2019-06-06 16:08:33 Encounters Start End Encounter Admission Attending Care Care Encounter Date/Time Date/Time Type Type Clinicians Facility Department ID 2020-05-07 2020-05-07 Outpatient Lucila Sanchez rn [id number] 00:00:00 00:00:00 [facility] 2020-05-01 2020-05-01 Outpatient Lucila torres [id number] 00:00:00 00:00:00 [facility] Medical Oncology Oncology [facility] 2020-04-30 2020-04-30 Outpatient Lucila Sanchez rn [id number] 00:00:00 00:00:00 [facility] 2020-04-24 2020-04-24 Outpatient Lucila torres [id number] 00:00:00 00:00:00 [facility] Oncology Oncology [facility] 2020-04-23 2020-04-23 Outpatient Lucila Sanchez rn [id number] 00:00:00 00:00:00 [facility] Medical Oncology Oncology [facility] 2020-04-17 2020-04-17 Outpatient Lucila torres [id number] 00:00:00 00:00:00 [facility] Medical Oncology Oncology [facility] 2020-04-16 2020-04-16 Outpatient Lucila torres [id number] 00:00:00 00:00:00 [facility] Medical Oncology Oncology [facility] 2020-04-10 2020-04-10 Outpatient Lucila torres [id number] 00:00:00 00:00:00 [facility] Medical Oncology Oncology [facility] 2020-04-09 2020-04-09 Lucila Sanchez [id number] 00:00:00 00:00:00 Dr. Prakash torres [facility] Medical Oncology [facility] [place] 2020-04-06 2020-04-06 Outpatient Lucila torres [id number] 00:00:00 00:00:00 [facility] Medical Oncology [facility] [place] 2020-03-12 2020-03-12 Outpatient Lucila Gaytan n [id number] 00:00:00 00:00:00 [facility] Oncology [facility]cology [facility] [place] 2020-02-13 2020-02-13 Outpatient Lucila Sanchez rn [id number] 00:00:00 00:00:00 [facility] Medical Oncology Oncology [facility] [place] 2020-01-18 2020-01-18 Outpatient Lucila torres [id number] 00:00:00 00:00:00 [facility] Oncology Oncology [facility] 2020-01-16 2020-01-16 Outpatient Lucila Sanchez rn [id number] 00:00:00 00:00:00 [facility] 2020-01-13 2020-01-13 Outpatient Lucila Gaytan n [id number] 00:00:00 00:00:00 [facility] Medical Oncology [facility] [place] 2020-01-02 2020-01-02 Outpatient Lucila Sanchez rn [id number] 00:00:00 00:00:00 [facility] On[facility] 2019-12-26 2019-12-26 Outpatient Lucila Sanchez rn [id number] 00:00:00 00:00:00 [facility] [place] 2019-12-23 2019-12-23 Outpatient Lucila torres [id number] 00:00:00 00:00:00 [facility] Medical Oncology On[facility] [place] 2019-12-20 2019-12-20 Outpatient Lucila Gaytan n [id number] 00:00:00 00:00:00 [facility] Medical Oncology On[facility] [place] 2019-12-19 2019-12-19 Dr. Lucila Maharaj [id number] 00:00:00 00:00:00 Nette Rodríguez [facility] Medical Oncology [facility] [place] 2019-12-16 2019-12-16 Outpatient Lucila Sanchez rn [id number] 00:00:00 00:00:00 [facility] 2019-11-21 2019-11-21 Outpatient EdwararikLucila rn [id number] 00:00:00 00:00:00 [facility] 2019-11-18 2019-11-18 Outpatient EdwararikLucila rn [id number] 00:00:00 00:00:00 [facility] 2019-10-24 2019-10-24 Outpatient EdwararikLucila rn [id number] 00:00:00 00:00:00 [facility] 2019-10-21 2019-10-21 Outpatient EdwararikLucila rn [id number] 00:00:00 00:00:00 [facility] 2019-09-23 2019-09-23 Mrs. Daniel ReyesLucila rn [id number] 00:00:00 00:00:00 Delilah A [facility] 2019-09-07 2019-09-07 Outpatient Lucila Sanchez rn [id number] 00:00:00 00:00:00 [facility] 2019-08-25 2019-08-25 Outpatient EdwararikLucilae rn [id number] 00:00:00 00:00:00 [facility] 2019-08-22 2019-08-22 Outpatient EdwararikLucila rn [id number] 00:00:00 00:00:00 [facility] 2019-08-15 2019-08-15 Outpatient Lucila Sanchez rn [id number] 00:00:00 00:00:00 [facility] 2019-08-10 2019-08-10 Outpatient Lucila Gaytan n [id number] 00:00:00 00:00:00 [facility] Oncology Oncology [facility] 2019-08-09 2019-08-09 Outpatient Lucila Gaytan n [id number] 00:00:00 00:00:00 [facility] Oncology Oncology [facility] 2019-08-03 2019-08-03 Outpatient Lucila Sancheze rn [id number] 00:00:00 00:00:00 [facility] [place] 2019-08-02 2019-08-02 Outpatient Lucila Gaytan n [id number] 00:00:00 00:00:00 [facility] Oncology Oncology [facility] 2019-08-01 2019-08-01 Outpatient Lucila Sanchezrick rn [id number] 00:00:00 00:00:00 [facility] 2019-07-01 2019-07-01 Outpatient Altonjessie Lucila Pedrazarick rn [id number] 00:00:00 00:00:00 [facility] 2019-06-29 2019-06-29 Outpatient Lucila Gaytan n [id number] 00:00:00 00:00:00 [facility] Oncology Oncology [facility] 2019-06-28 2019-06-28 Amy Mrs. Sanchez Lucial Pedrazarick rn [id number] 00:00:00 00:00:00 Delilah Arturo [facility] 2019-06-21 2019-06-21 Outpatient [facility] [id number] 00:00:00 00:00:00 _[id number] 2019-06-21 Outpatient Altonjessie Lucila Pedrazarick rn [id number] 00:00:00 00:00:00 [facility] 2019-06-06 2019-06-06 Eddie Cuevas [facility] , [id number] 00:00:00 00:00:00 Segura P.A. POly [id number] MD: [address] [place] [address], [place] [address], Ph. 2019-06-01 2019-06-01 Outpatient Altonjessie Lucila Pedrazarick rn [id number] 00:00:00 00:00:00 [facility] 2019-05-30 2019-05-30 Outpatient Lucila Gaytan n [id number] 00:00:00 00:00:00 [facility] Oncology Oncology [facility] 2019-05-27 2019-05-27 Outpatient AltonLucila romanrick rn [id number] 00:00:00 00:00:00 [facility] 2019-05-24 2019-05-24 Outpatient BYRON SALAS [facility] [id number] 14:27:27 14:27:27 JEFFERY 2019-05-24 2019-05-24 Outpatient Lucila Gaytan n [id number] 00:00:00 00:00:00 [facility] Oncology Oncology [facility] 2019-05-18 2019-05-18 Outpatient EdwararikLucila rn [id number] 00:00:00 00:00:00 [facility] 2019-05-03 2019-05-03 Outpatient Lucila Gaytan n [id number] 00:00:00 00:00:00 [facility] Oncology Oncology [facility] [place] 2019-05-02 2019-05-02 Outpatient Lucila Gaytan n [id number] 00:00:00 00:00:00 [facility] Oncology Oncology [facility] 2019-04-29 2019-04-29 Outpatient Lucila Gaytan n [id number] 00:00:00 00:00:00 [facility] Oncology Oncology [facility] 2019-04-27 2019-04-27 Outpatient Lucila Sanchez rn [id number] 00:00:00 00:00:00 [facility] 2019-04-21 2019-04-21 Outpatient Lucila Sanchez rn [id number] 00:00:00 00:00:00 [facility] 2019-04-20 2019-04-20 Outpatient Lucila Sanchez rn [id number] 00:00:00 00:00:00 [facility] 2019-04-05 2019-04-05 Outpatient Lucila Sanchez rn [id number] 00:00:00 00:00:00 [facility] 2019-04-04 2019-04-04 Outpatient Lucila Pedrazacameron n [id number] 00:00:00 00:00:00 [facility] Oncology Oncology [facility] 2019-04-01 2019-04-01 Outpatient Lucila Sanchez rn [id number] 00:00:00 00:00:00 [facility] 2019-03-23 2019-03-23 Outpatient Lucila Sanchez rn [id number] 00:00:00 00:00:00 [facility] 2019-03-04 2019-03-04 Outpatient Lucila Sanchezrick rn [id number] 00:00:00 00:00:00 [facility] 2019-03-03 2019-03-03 Outpatient Lucila Sanchezrick rn [id number] 00:00:00 00:00:00 [facility] 2019-03-02 2019-03-02 Outpatient Lucila Sanchezrick rn [id number] 00:00:00 00:00:00 [facility] 2019-03-01 2019-03-01 Outpatient Lucila Sanchezrick rn [id number] 00:00:00 00:00:00 [facility] 2019-02-28 2019-02-28 Outpatient Lucila Sanchezrick rn [id number] 00:00:00 00:00:00 [facility] On[facility] 2019-02-25 2019-02-25 Outpatient AltonLucila roman Kaitlin rn [id number] 00:00:00 00:00:00 [facility] On[facility] 2019-02-24 2019-02-24 Outpatient Lucila Gaytan n [id number] 00:00:00 00:00:00 [facility] Oncology Oncology [facility] 2019-02-23 2019-02-23 AltonDaniel roman [facility] [id number] 00:00:00 00:00:00 Dr. Randall [facility] Oncology Oncology [facility] 2019-02-16 2019-02-16 Outpatient Lucila Gaytan n [id number] 00:00:00 00:00:00 [facility] Oncology Oncology [facility] 2019-02-11 2019-02-11 Outpatient Lucila Pedrazaer n [id number] 00:00:00 00:00:00 [facility] Medical Oncology [facility] [place] 2017-09-07 2017-09-07 Outpatient Lucila Pedrazaer n [id number] 00:00:00 00:00:00 [facility] Oncology Oncology [facility] [place] 2016-12-02 2016-12-02 Outpatient Lucila Pedrazaer n [id number] 00:00:00 00:00:00 [facility] Oncology Oncology [facility] 2015-11-05 2015-11-05 Outpatient Lucila Pedrazaer n [id number] 00:00:00 00:00:00 n Medical Medical Oncology Oncology [facility] 2015-06-25 2015-06-25 Outpatient Milo Milo n [id number] 00:00:00 00:00:00 [facility] Oncology Oncology [facility] 2013-07-28 2013-07-28 Outpatient Lucila Pedraza n [id number] 00:00:00 00:00:00 [facility] Immunizations Ordered Immunization Filled Immunization Date Status Commen ts Refusal Reason Name Name Afluria Quadrivalent 2020-04-23 Completed 00:00:00 Afluria Quadrivalent 2020-04-23 Completed 00:00:00 Payers Payer Name Policy Type Policy Number Effective Date Expiration D ate [employer] GENERIC [id number] 2018 00:00:00 Plan of Treatment Planned Activity Planned Date Details Comments Future Scheduled Test [code = ] Future Scheduled Test [code = ] Future Scheduled Test [code = ] Future Scheduled Test [code = ] Future Scheduled Test [code = ] Social History Smoking Status Start Date Stop Date Unknown If Ever Smoked Never 2020-04-09 00:00:00 Social History Observation Description Sex Female Vital Signs Vital Name Observation Time Observation Value Comments Systolic blood pressure 2019-05-24 14:31:00 132 mm[Hg] Diastolic blood pressure 2019-05-24 14:31:00 76 mm[Hg] Heart rate 2019-05-24 14:31:00 84 /min Body temperature 2019-05-24 14:31:00 36.83 Norma Body height 2019-05-24 14:31:00 167.6 cm Body weight 2019-05-24 14:31:00 126.554 kg BMI 2019-05-24 14:31:00 45.03 kg/m2 BMI 2020-05-07 15:33:44 45.7400 BP leon 2020-05-07 15:33:44 83.0000 mm[Hg] Bdy height 2020-05-07 15:33:44 66.0000 [in_i] SaO2% BldA PulseOx 2020-05-07 15:33:44 98.0000 % Heart rate 2020-05-07 15:33:44 72.0000 /min Resp rate 2020-05-07 15:33:44 16.0000 /min BP sys 2020-05-07 15:33:44 139.0000 mm[Hg] Body temperature 2020-05-07 15:33:44 98.6000 [degF] Weight 2020-05-07 15:33:44 283.4000 [lb_av] BMI 2020-04-30 14:45:25 45.7700 BP leon 2020-04-30 14:45:25 82.0000 mm[Hg] Bdy height 2020-04-30 14:45:25 66.0000 [in_i] SaO2% BldA PulseOx 2020-04-30 14:45:25 97.0000 % Heart rate 2020-04-30 14:45:25 79.0000 /min Resp rate 2020-04-30 14:45:25 18.0000 /min BP sys 2020-04-30 14:45:25 153.0000 mm[Hg] Body temperature 2020-04-30 14:45:25 98.3000 [degF] Weight 2020-04-30 14:45:25 283.6000 [lb_av] BMI 2020-04-23 14:57:25 45.5800 BP leon 2020-04-23 14:57:25 88.0000 mm[Hg] Bdy height 2020-04-23 14:57:25 66.0000 [in_i] SaO2% BldA PulseOx 2020-04-23 14:57:25 96.0000 % Heart rate 2020-04-23 14:57:25 82.0000 /min Resp rate 2020-04-23 14:57:25 18.0000 /min BP sys 2020-04-23 14:57:25 115.0000 mm[Hg] Body temperature 2020-04-23 14:57:25 98.2000 [degF] Weight 2020-04-23 14:57:25 282.4000 [lb_av] BMI 2020-04-09 15:31:30 46.0000 BP leon 2020-04-09 15:31:30 70.0000 mm[Hg] Bdy height 2020-04-09 15:31:30 66.0000 [in_i] SaO2% BldA PulseOx 2020-04-09 15:31:30 97.0000 % Heart rate 2020-04-09 15:31:30 71.0000 /min Resp rate 2020-04-09 15:31:30 16.0000 /min BP sys 2020-04-09 15:31:30 135.0000 mm[Hg] Body temperature 2020-04-09 15:31:30 97.8000 [degF] Weight 2020-04-09 15:31:30 285.0000 [lb_av] BP leon 2020-03-12 15:26:19 81.0000 mm[Hg] Bdy height 2020-03-12 15:26:19 66.0000 [in_i] SaO2% BldA PulseOx 2020-03-12 15:26:19 98.0000 % Heart rate 2020-03-12 15:26:19 71.0000 /min Resp rate 2020-03-12 15:26:19 16.0000 /min BP sys 2020-03-12 15:26:19 127.0000 mm[Hg] Body temperature 2020-03-12 15:26:19 98.8000 [degF] BMI 2020-02-13 13:19:35 45.3900 BP leon 2020-02-13 13:19:35 93.0000 mm[Hg] Bdy height 2020-02-13 13:19:35 66.0000 [in_i] SaO2% BldA PulseOx 2020-02-13 13:19:35 96.0000 % Heart rate 2020-02-13 13:19:35 74.0000 /min Resp rate 2020-02-13 13:19:35 16.0000 /min BP sys 2020-02-13 13:19:35 138.0000 mm[Hg] Body temperature 2020-02-13 13:19:35 97.9000 [degF] Weight 2020-02-13 13:19:35 281.2000 [lb_av] Bdy height 2020-01-16 15:50:39 66.0000 [in_i] Body temperature 2020-01-16 15:50:39 98.0000 [degF] BMI 2020-01-02 15:33:45 44.6100 BP leon 2020-01-02 15:33:45 75.0000 mm[Hg] Bdy height 2020-01-02 15:33:45 66.0000 [in_i] SaO2% BldA PulseOx 2020-01-02 15:33:45 96.0000 % Heart rate 2020-01-02 15:33:45 70.0000 /min Resp rate 2020-01-02 15:33:45 18.0000 /min BP sys 2020-01-02 15:33:45 123.0000 mm[Hg] Body temperature 2020-01-02 15:33:45 97.0000 [degF] Weight 2020-01-02 15:33:45 276.4000 [lb_av] BMI 2019-12-26 15:07:32 45.7400 BP leon 2019-12-26 15:07:32 83.0000 mm[Hg] Bdy height 2019-12-26 15:07:32 66.0000 [in_i] SaO2% BldA PulseOx 2019-12-26 15:07:32 97.0000 % Heart rate 2019-12-26 15:07:32 76.0000 /min Resp rate 2019-12-26 15:07:32 22.0000 /min BP sys 2019-12-26 15:07:32 139.0000 mm[Hg] Body temperature 2019-12-26 15:07:32 98.0000 [degF] Weight 2019-12-26 15:07:32 283.4000 [lb_av] BMI 2019-12-19 14:24:29 45.2600 BP leon 2019-12-19 14:24:29 88.0000 mm[Hg] Bdy height 2019-12-19 14:24:29 66.0000 [in_i] SaO2% BldA PulseOx 2019-12-19 14:24:29 97.0000 % Heart rate 2019-12-19 14:24:29 69.0000 /min Resp rate 2019-12-19 14:24:29 16.0000 /min BP sys 2019-12-19 14:24:29 147.0000 mm[Hg] Body temperature 2019-12-19 14:24:29 97.4000 [degF] Weight 2019-12-19 14:24:29 280.4000 [lb_av] BMI 2019-09-23 14:36:53 46.1300 BP leon 2019-09-23 14:36:53 87.0000 mm[Hg] Bdy height 2019-09-23 14:36:53 66.0000 [in_i] SaO2% BldA PulseOx 2019-09-23 14:36:53 98.0000 % Heart rate 2019-09-23 14:36:53 81.0000 /min Resp rate 2019-09-23 14:36:53 18.0000 /min BP sys 2019-09-23 14:36:53 158.0000 mm[Hg] Body temperature 2019-09-23 14:36:53 98.1000 [degF] Weight 2019-09-23 14:36:53 285.8000 [lb_av] Bdy height 2019-08-25 16:10:09 66.0000 [in_i] SaO2% BldA PulseOx 2019-08-25 16:10:09 97.0000 % BMI 2019-08-25 15:55:29 44.8400 BP leon 2019-08-25 15:55:29 87.0000 mm[Hg] Bdy height 2019-08-25 15:55:29 66.0000 [in_i] Heart rate 2019-08-25 15:55:29 73.0000 /min Resp rate 2019-08-25 15:55:29 16.0000 /min BP sys 2019-08-25 15:55:29 124.0000 mm[Hg] Body temperature 2019-08-25 15:55:29 98.1000 [degF] Weight 2019-08-25 15:55:29 277.8000 [lb_av] BMI 2019-08-15 15:17:48 45.3500 BP leon 2019-08-15 15:17:48 87.0000 mm[Hg] Bdy height 2019-08-15 15:17:48 66.0000 [in_i] SaO2% BldA PulseOx 2019-08-15 15:17:48 96.0000 % Heart rate 2019-08-15 15:17:48 77.0000 /min Resp rate 2019-08-15 15:17:48 18.0000 /min BP sys 2019-08-15 15:17:48 127.0000 mm[Hg] Body temperature 2019-08-15 15:17:48 98.2000 [degF] Weight 2019-08-15 15:17:48 281.0000 [lb_av] BMI 2019-07-01 15:37:22 45.1900 BP leon 2019-07-01 15:37:22 84.0000 mm[Hg] Bdy height 2019-07-01 15:37:22 66.0000 [in_i] SaO2% BldA PulseOx 2019-07-01 15:37:22 98.0000 % Heart rate 2019-07-01 15:37:22 83.0000 /min Resp rate 2019-07-01 15:37:22 18.0000 /min BP sys 2019-07-01 15:37:22 123.0000 mm[Hg] Body temperature 2019-07-01 15:37:22 98.2000 [degF] Weight 2019-07-01 15:37:22 280.0000 [lb_av] BMI 2019-06-28 16:06:20 45.8100 BP leon 2019-06-28 16:06:20 79.0000 mm[Hg] Bdy height 2019-06-28 16:06:20 66.0000 [in_i] SaO2% BldA PulseOx 2019-06-28 16:06:20 98.0000 % Heart rate 2019-06-28 16:06:20 91.0000 /min Resp rate 2019-06-28 16:06:20 16.0000 /min BP sys 2019-06-28 16:06:20 122.0000 mm[Hg] Body temperature 2019-06-28 16:06:20 97.8000 [degF] Weight 2019-06-28 16:06:20 283.8000 [lb_av] BMI 2019-06-21 15:32:55 45.3500 BP leon 2019-06-21 15:32:55 76.0000 mm[Hg] Bdy height 2019-06-21 15:32:55 66.0000 [in_i] SaO2% BldA PulseOx 2019-06-21 15:32:55 98.0000 % Heart rate 2019-06-21 15:32:55 87.0000 /min Resp rate 2019-06-21 15:32:55 16.0000 /min BP sys 2019-06-21 15:32:55 122.0000 mm[Hg] Body temperature 2019-06-21 15:32:55 97.9000 [degF] Weight 2019-06-21 15:32:55 281.0000 [lb_av] BMI 2019-05-27 16:21:34 45.3900 BP leon 2019-05-27 16:21:34 73.0000 mm[Hg] Bdy height 2019-05-27 16:21:34 66.0000 [in_i] SaO2% BldA PulseOx 2019-05-27 16:21:34 98.0000 % Heart rate 2019-05-27 16:21:34 75.0000 /min Resp rate 2019-05-27 16:21:34 18.0000 /min BP sys 2019-05-27 16:21:34 109.0000 mm[Hg] Body temperature 2019-05-27 16:21:34 98.3000 [degF] Weight 2019-05-27 16:21:34 281.2000 [lb_av] BMI 2019-04-29 15:40:43 44.7100 BP leon 2019-04-29 15:40:43 72.0000 mm[Hg] Bdy height 2019-04-29 15:40:43 66.0000 [in_i] SaO2% BldA PulseOx 2019-04-29 15:40:43 97.0000 % Heart rate 2019-04-29 15:40:43 79.0000 /min Resp rate 2019-04-29 15:40:43 16.0000 /min BP sys 2019-04-29 15:40:43 117.0000 mm[Hg] Body temperature 2019-04-29 15:40:43 98.6000 [degF] Weight 2019-04-29 15:40:43 277.0000 [lb_av] BMI 2019-04-21 15:33:58 44.9400 BP leon 2019-04-21 15:33:58 85.0000 mm[Hg] Bdy height 2019-04-21 15:33:58 66.0000 [in_i] SaO2% BldA PulseOx 2019-04-21 15:33:58 99.0000 % Heart rate 2019-04-21 15:33:58 99.0000 /min Resp rate 2019-04-21 15:33:58 18.0000 /min BP sys 2019-04-21 15:33:58 136.0000 mm[Hg] Body temperature 2019-04-21 15:33:58 97.2000 [degF] Weight 2019-04-21 15:33:58 278.4000 [lb_av] BMI 2019-04-01 16:46:50 44.9000 BP leon 2019-04-01 16:46:50 86.0000 mm[Hg] Bdy height 2019-04-01 16:46:50 66.0000 [in_i] SaO2% BldA PulseOx 2019-04-01 16:46:50 98.0000 % Heart rate 2019-04-01 16:46:50 82.0000 /min Resp rate 2019-04-01 16:46:50 16.0000 /min BP sys 2019-04-01 16:46:50 147.0000 mm[Hg] Body temperature 2019-04-01 16:46:50 97.3000 [degF] Weight 2019-04-01 16:46:50 278.2000 [lb_av] BP leon 2019-03-04 14:59:44 81.0000 mm[Hg] Bdy height 2019-03-04 14:59:44 66.0000 [in_i] SaO2% BldA PulseOx 2019-03-04 14:59:44 97.0000 % Heart rate 2019-03-04 14:59:44 69.0000 /min Resp rate 2019-03-04 14:59:44 18.0000 /min BP sys 2019-03-04 14:59:44 131.0000 mm[Hg] Body temperature 2019-03-04 14:59:44 97.8000 [degF] Weight 2019-03-04 14:59:44 276.0000 [lb_av] BMI 2019-03-04 14:59:44 44.5500 BMI 2019-02-28 16:35:15 44.7100 BP leon 2019-02-28 16:35:15 80.0000 mm[Hg] Bdy height 2019-02-28 16:35:15 66.0000 [in_i] SaO2% BldA PulseOx 2019-02-28 16:35:15 97.0000 % Heart rate 2019-02-28 16:35:15 93.0000 /min Resp rate 2019-02-28 16:35:15 18.0000 /min BP sys 2019-02-28 16:35:15 125.0000 mm[Hg] Body temperature 2019-02-28 16:35:15 97.6000 [degF] Weight 2019-02-28 16:35:15 277.0000 [lb_av] BMI 2019-02-23 15:14:04 44.2600 BP leon 2019-02-23 15:14:04 82.0000 mm[Hg] Bdy height 2019-02-23 15:14:04 66.0000 [in_i] SaO2% BldA PulseOx 2019-02-23 15:14:04 98.0000 % Heart rate 2019-02-23 15:14:04 79.0000 /min Resp rate 2019-02-23 15:14:04 18.0000 /min BP sys 2019-02-23 15:14:04 122.0000 mm[Hg] Body temperature 2019-02-23 15:14:04 98.1000 [degF] Weight 2019-02-23 15:14:04 274.2000 [lb_av] Hospital Discharge Instructions 1. Torticollis Medrol (Spike) 4 mg tablets in a dose pack cyclobenzaprine 10 mg tablet 2. Neckpain neck pain: care instructions XR, cervical spine Discussion Note: None recorded.Patient Instructions Caleb Albert CMA - 05/24/2019 3:00 PM ESTThank you for choosing [facility]. We care about you and we want to provide you with helpful infor maxim: Note: If you are experiencing a medical emergency or need urgent medical care, call [phone] immediately. GI Appointment Services , option 1 Thursday through Thursday 8:00 a.m. 5:00 p.m. To schedule, reschedule, or cancel your GI appointment, please call , option 1. If you are unable to come to an appointment, please notify us as soon as possible, preferably 24 hours inadvance. This allows other patients with urgent needs to be cared for quicker. GI [phone], option 6 Thursday through Thursday 8:00 a.m. 4:30 p.m. For urgent medical concerns after hours or on holidays, call and ask to speak to the GI Fellow salesperson [employer]. If you have a GI medical q uestion or symptom concern and would like to speak to your providers healthcare team, please callthe GI Nurse at , option 6. For routine questions, please send the GI healthcare team a message through [employer] at [email or web address]. Prescription Refill Requests Contact your [facility] To request prescription refills, please contact your pharmacy or send your healthcare team a message through your MyChart account at [email or web address] Forms, Letters, Medical Records Call [phone], option 5 For questions related to forms, letters, or medical records, please call , option 5 for assistance. Test Results Test results may take up to 14 days to be completed. If you have a [employer] account, your new results and a provider message will be sent to you through your [employer] account at [email or web address]. If you do not have [employer], your test result letter will be mailed to you, which may extend this notification time. Your health care team will contact you by telephone if your results require additional follow up. documented in this encounter
== END ==
LOC: RAD 09:25
PROVIDERS: ATTEND Internal Medicine Gastroenterology
DX: R94.5 Abnormal results of liver function studies (principal)
CPT/HCPCS: 76705